=== PATIENT | male | born 1945 | race Caucasian/White ===

== ENCOUNTER 2018-04-01 20:20 | Inpatient (IN) | payer MEDICARE, BC ==
--- NOTE | 2018-04-01 20:47 | ED ---
Weakness HPI - General Chief complaint: Weakness Stated complaint: Weakenss Time Seen by Provider: 04/01/18 20:31 Source: patient, family, RN notes reviewed Mode of arrival: ambulatory Limitations: no limitations - History of Present Illness Initial comments: This is a 72-year-old male was brought in by his with complaints of generalized weakness. Feel generally weak over last 2 or 3 days getting progressively worse he has a slight cough has had some chills no fevers until he was going to . His . He does have Parkinson's disease with a neurostimulator. No reports of dysuria hematuria he's had somewhat decreased oral intake also. No focal weakness no headaches rhinorrhea. No other modifying factors currently MD Complaint: generalized weakness - Related Data Home Medications Medication Instructions Recorded Confirmed Acetaminophen with Codeine 1 - 2 tab PO QID PRN 04/01/18 04/01/18 [Tylenol w/codeine #3] Atorvastatin Calcium [Lipitor] 10 mg PO HS 04/01/18 04/01/18 Carbidopa-Levodopa ER 50-200Mg 1 tab PO TID 04/01/18 04/01/18 [Sinemet ER 50-200] Cholecalciferol (Vitamin D3) 2,000 unit PO DAILY 04/01/18 04/01/18 [Vitamin D3] Donepezil HCl [Aricept] 10 mg PO DAILY 04/01/18 04/01/18 Metoprolol Succinate [Toprol XL] 200 mg PO HS 04/01/18 04/01/18 Multivit-Min/FA/Lycopen/Lutein 1 tab PO DAILY 04/01/18 04/01/18 [Centrum Silver Men Tablet] [place]-3 Fatty Acids/Fish Oil [Fish 1 cap PO DAILY 04/01/18 04/01/18 Oil 1,000 mg Softgel] Vitamin B Complex 1 cap PO DAILY 04/01/18 04/01/18 metFORMIN HCL [Glucophage] 500 mg PO BID 04/01/18 04/01/18 Allergies Allergy/AdvReac Type Severity Reaction Status Date / Time No Known Allergies Allergy Verified 04/01/18 21:20 Review of Systems ROS Statement: Those systems with pertinent positive or pertinent negative responses have been documented in the HPI. ROS Other: All systems not noted in ROS Statement are negative. Past Medical History Past Medical History: Diabetes Mellitus, Hypertension Additional Past Medical History / Comment(s): parkinsons, deep brain stimulator, History of Any Multi-Drug Resistant Organisms: None Reported Additional Past Surgical History / Comment(s): deep brain stimulator Past Psychological History: No Psychological Hx Reported Smoking Status: Never smoker Past Alcohol Use History: None Reported Past Drug Use History: None Reported General Exam - General Exam Comments Initial Comments: This is a well-developed well-nourished awake alert but somewhat lethargic male Limitations: no limitations General appearance: alert, in no apparent distress Head exam: Present: atraumatic, normocephalic, normal inspection Eye exam: Present: normal appearance, PERRL, EOMI. Absent: scleral icterus, conjunctival injection, periorbital swelling ENT exam: Present: mucous membranes dry Neck exam: Present: normal inspection. Absent: tenderness, meningismus, lymphadenopathy Respiratory exam: Present: decreased breath sounds (Crepitus at the left base). Absent: respiratory distress, wheezes, rales, rhonchi, stridor Cardiovascular Exam: Present: regular rate, normal rhythm, normal heart sounds. Absent: systolic murmur, diastolic murmur, rubs, gallop, clicks GI/Abdominal exam: Present: soft, normal bowel sounds. Absent: distended, tenderness, guarding, rebound, rigid Extremities exam: Present: normal inspection, full ROM, normal capillary refill. Absent: tenderness, pedal edema, joint swelling, calf tenderness Back exam: Present: normal inspection Neurological exam: Present: alert, oriented X3, CN II-XII intact Psychiatric exam: Present: normal affect, normal mood Skin exam: Present: warm, dry, intact, normal color. Absent: rash Course Vital Signs 04/01/18 04/01/18 04/01/18 20:21 20:51 20:57 Temperature 98.8 F 100.5 F H Pulse Rate 86 79 Pulse Rate [ 76 Glove Brusher ] Respiratory 18 17 17 Rate Blood Pressure 144/79 160/85 O2 Sat by Pulse 95 91 L Oximetry 04/01/18 04/01/18 21:36 22:32 Temperature 99.5 F Pulse Rate 70 70 Pulse Rate [ Glove Brusher ] Respiratory 16 16 Rate Blood Pressure 138/81 144/71 O2 Sat by Pulse 95 97 Oximetry EKG Findings - EKG Results: EKG: interpreted by BARRY, sinus rhythm (Sinus rhythm of 76. Interval 148 QRS duration 84 QT since QTC 360/414 this is a normal-appearing EKG) Medical Decision Making - Medical Decision Making I did discuss the findings with the patient and his 's patient does demonstrate evidence of pneumonia he will be admitted he was given adequate IV fluid resuscitation IV antibiotics. - Lab Data Result diagrams: 04/01/18 20:44 04/01/18 20:44 Lab Results 04/01/18 04/01/18 04/01/18 Range/Units 20:44 20:44 20:44 WBC 15.7 H (3.8-10.6) k/uL RBC 4.68 (4.30-5.90) m/uL Hgb 13.5 (13.0-17.5) gm/dL Hct 41.9 (39.0-53.0) % MCV 89.5 (80.0-100.0) fL MCH 28.8 (25.0-35.0) pg MCHC 32.2 (31.0-37.0) g/dL RDW 13.3 (11.5-15.5) % Plt Count 236 (150-450) k/uL Neutrophils % 79 % Lymphocytes % 14 % Monocytes % 5 % Eosinophils % 1 % Basophils % 0 % Neutrophils # 12.3 H (1.3-7.7) k/uL Lymphocytes # 2.2 (1.0-4.8) k/uL Monocytes # 0.8 (0-1.0) k/uL Eosinophils # 0.1 (0-0.7) k/uL Basophils # 0.1 (0-0.2) k/uL PT (9.0-12.0) sec INR (<1.2) APTT (22.0-30.0) sec Sodium 140 (137-145) mmol/L Potassium 4.3 (3.5-5.1) mmol/L Chloride 102 (98-107) mmol/L Carbon Dioxide 26 (22-30) mmol/L Anion Gap 12 mmol/L BUN 21 H (9-20) mg/dL Creatinine 0.79 (0.66-1.25) mg/dL Est GFR (CKD-EPI)AfAm >90 (>60 ml/min/1.73 sqM) Est GFR (CKD-EPI)NonAf 89 (>60 ml/min/1.73 sqM) Glucose 169 H (74-99) mg/dL Plasma Lactic Acid Fermin (0.7-2.0) mmol/L Calcium 10.0 (8.4-10.2) mg/dL Magnesium 1.9 (1.6-2.3) mg/dL Total Bilirubin 0.6 (0.2-1.3) mg/dL AST 19 (17-59) U/L ALT 14 L (21-72) U/L Alkaline Phosphatase 65 (38-126) U/L Total Creatine Kinase 50 L (55-170) U/L CK-MB (CK-2) 1.3 (0.0-2.4) ng/mL CK-MB (CK-2) Rel Index 2.6 Troponin I <0.012 (0.000-0.034) ng/mL NT-Pro-B Natriuret Pep pg/mL Total Protein 7.1 (6.3-8.2) g/dL Albumin 4.6 (3.5-5.0) g/dL Urine Color Urine Appearance (Clear) Urine pH (5.0-8.0) Ur Specific Lucien (1.001-1.035) Urine Protein (Negative) Urine Glucose (UA) (Negative) Urine Ketones (Negative) Urine Blood (Negative) Urine Nitrite (Negative) Urine Bilirubin (Negative) Urine Urobilinogen (<2.0) mg/dL Ur Leukocyte Esterase (Negative) Urine RBC (0-5) /hpf Urine WBC (0-5) /hpf Urine Bacteria (None) /hpf Urine Mucus (None) /hpf Urine Sperm (None) /hpf Influenza Type A RNA (Not Detectd) Influenza Type B (PCR) (Not Detectd) 04/01/18 04/01/18 04/01/18 Range/Units 20:44 20:44 20:44 WBC (3.8-10.6) k/uL RBC (4.30-5.90) m/uL Hgb (13.0-17.5) gm/dL Hct (39.0-53.0) % MCV (80.0-100.0) fL MCH (25.0-35.0) pg MCHC (31.0-37.0) g/dL RDW (11.5-15.5) % Plt Count (150-450) k/uL Neutrophils % % Lymphocytes % % Monocytes % % Eosinophils % % Basophils % % Neutrophils # (1.3-7.7) k/uL Lymphocytes # (1.0-4.8) k/uL Monocytes # (0-1.0) k/uL Eosinophils # (0-0.7) k/uL Basophils # (0-0.2) k/uL PT 9.9 (9.0-12.0) sec INR 1.0 (<1.2) APTT 29.0 (22.0-30.0) sec Sodium (137-145) mmol/L Potassium (3.5-5.1) mmol/L Chloride (98-107) mmol/L Carbon Dioxide (22-30) mmol/L Anion Gap mmol/L BUN (9-20) mg/dL Creatinine (0.66-1.25) mg/dL Est GFR (CKD-EPI)AfAm (>60 ml/min/1.73 sqM) Est GFR (CKD-EPI)NonAf (>60 ml/min/1.73 sqM) Glucose (74-99) mg/dL Plasma Lactic Acid Fermin 2.2 H* (0.7-2.0) mmol/L Calcium (8.4-10.2) mg/dL Magnesium (1.6-2.3) mg/dL Total Bilirubin (0.2-1.3) mg/dL AST (17-59) U/L ALT (21-72) U/L Alkaline Phosphatase (38-126) U/L Total Creatine Kinase (55-170) U/L CK-MB (CK-2) (0.0-2.4) ng/mL CK-MB (CK-2) Rel Index Troponin I (0.000-0.034) ng/mL NT-Pro-B Natriuret Pep 51 pg/mL Total Protein (6.3-8.2) g/dL Albumin (3.5-5.0) g/dL Urine Color Urine Appearance (Clear) Urine pH (5.0-8.0) Ur Specific Lucien (1.001-1.035) Urine Protein (Negative) Urine Glucose (UA) (Negative) Urine Ketones (Negative) Urine Blood (Negative) Urine Nitrite (Negative) Urine Bilirubin (Negative) Urine Urobilinogen (<2.0) mg/dL Ur Leukocyte Esterase (Negative) Urine RBC (0-5) /hpf Urine WBC (0-5) /hpf Urine Bacteria (None) /hpf Urine Mucus (None) /hpf Urine Sperm (None) /hpf Influenza Type A RNA (Not Detectd) Influenza Type B (PCR) (Not Detectd) 04/01/18 04/01/18 Range/Units 20:59 22:45 WBC (3.8-10.6) k/uL RBC (4.30-5.90) m/uL Hgb (13.0-17.5) gm/dL Hct (39.0-53.0) % MCV (80.0-100.0) fL MCH (25.0-35.0) pg MCHC (31.0-37.0) g/dL RDW (11.5-15.5) % Plt Count (150-450) k/uL Neutrophils % % Lymphocytes % % Monocytes % % Eosinophils % % Basophils % % Neutrophils # (1.3-7.7) k/uL Lymphocytes # (1.0-4.8) k/uL Monocytes # (0-1.0) k/uL Eosinophils # (0-0.7) k/uL Basophils # (0-0.2) k/uL PT (9.0-12.0) sec INR (<1.2) APTT (22.0-30.0) sec Sodium (137-145) mmol/L Potassium (3.5-5.1) mmol/L Chloride (98-107) mmol/L Carbon Dioxide (22-30) mmol/L Anion Gap mmol/L BUN (9-20) mg/dL Creatinine (0.66-1.25) mg/dL Est GFR (CKD-EPI)AfAm (>60 ml/min/1.73 sqM) Est GFR (CKD-EPI)NonAf (>60 ml/min/1.73 sqM) Glucose (74-99) mg/dL Plasma Lactic Acid Fermin (0.7-2.0) mmol/L Calcium (8.4-10.2) mg/dL Magnesium (1.6-2.3) mg/dL Total Bilirubin (0.2-1.3) mg/dL AST (17-59) U/L ALT (21-72) U/L Alkaline Phosphatase (38-126) U/L Total Creatine Kinase (55-170) U/L CK-MB (CK-2) (0.0-2.4) ng/mL CK-MB (CK-2) Rel Index Troponin I (0.000-0.034) ng/mL NT-Pro-B Natriuret Pep pg/mL Total Protein (6.3-8.2) g/dL Albumin (3.5-5.0) g/dL Urine Color Yellow Urine Appearance Cloudy (Clear) Urine pH 7.0 (5.0-8.0) Ur Specific Lucien 1.019 (1.001-1.035) Urine Protein 1+ H (Negative) Urine Glucose (UA) Negative (Negative) Urine Ketones Negative (Negative) Urine Blood Negative (Negative) Urine Nitrite Negative (Negative) Urine Bilirubin Negative (Negative) Urine Urobilinogen <2.0 (<2.0) mg/dL Ur Leukocyte Esterase Negative (Negative) Urine RBC 13 H (0-5) /hpf Urine WBC 10 H (0-5) /hpf Urine Bacteria Many H (None) /hpf Urine Mucus Rare H (None) /hpf Urine Sperm Many H (None) /hpf Influenza Type A RNA Not Detected (Not Detectd) Influenza Type B (PCR) Not Detected (Not Detectd) - Radiology Data Radiology results: report reviewed (I did review the imaging and report is evidence a left basilar infiltrate.), image reviewed Disposition Clinical Impression: Pneumonia, Dehydration, Failure to thrive Disposition: ADMITTED IP TO THIS [facility] Condition: Stable Referrals: Davide Buchanan MD [Primary Care Provider] - 1-2 days
[2018-04-01] MEDS ORDERED: SODIUM CHLORIDE 0.9% 500 ML IV STA (21:03)
[2018-04-01 21:18] LABS: Basophils # (A) 0.1 k/uL (0-0.2); Basophils % (A) 0 %; Eosinophils # (A) 0.1 k/uL (0-0.7); Eosinophils % (A) 1 %; HCT 41.9 % (39.0-53.0); HGB 13.5 gm/dL (13.0-17.5); Lymphocytes # (A) 2.2 k/uL (1.0-4.8); Lymphocytes % (A) 14 %; MCH 28.8 pg (25.0-35.0); MCHC 32.2 g/dL (31.0-37.0); MCV 89.5 fL (80.0-100.0); Mean Platelet Volume 7.1; Monocytes # (A) 0.8 k/uL (0-1.0); Monocytes % (A) 5 %; Neutrophils # (A) 12.3 k/uL (1.3-7.7); Neutrophils % (A) 79 %; Platelet Count 236 k/uL (150-450); RBC 4.68 m/uL (4.30-5.90); RDW 13.3 % (11.5-15.5); WBC 15.7 k/uL (3.8-10.6)
[2018-04-01 21:29] LABS: ALT 14 U/L (21-72); AST 19 U/L (17-59); Albumin 4.6 g/dL (3.5-5.0); Alkaline Phosphatase 65 U/L (38-126); Anion Gap 12 mmol/L; Blood Urea Nitrogen 21 mg/dL (9-20); Carbon Dioxide 26 mmol/L (22-30); Chloride 102 mmol/L (98-107); Glucose 169 mg/dL (74-99); Magnesium 1.9 mg/dL (1.6-2.3); Potassium 4.3 mmol/L (3.5-5.1); Sodium 140 mmol/L (137-145); Total Bilirubin 0.6 mg/dL (0.2-1.3); Total Protein 7.1 g/dL (6.3-8.2)
[2018-04-01 21:33] LABS: Creatine Kinase 50 U/L (55-170)
[2018-04-01] MEDS: SODIUM CHLORIDE 0.9% 1,000 ML IV STA (21:34)
[2018-04-01 21:37] LABS: Prothrombin Time 9.9 sec (9.0-12.0)
[2018-04-01 21:46] LABS: Creatine Kinase MB 1.3 ng/mL (0.0-2.4); Troponin I <0.012 ng/mL (0.000-0.034)
--- NOTE | 2018-04-01 21:56 | XR ---
EXAMINATION TYPE: XR chest 2V DATE OF EXAM: 04/01/2018 COMPARISON: 07/24/2012 HISTORY: Weakness TECHNIQUE: Frontal and lateral views of the chest are obtained. FINDINGS: There is poor inspiration with elevated diaphragms. There is linear infiltrate and atelect asis at the left lung base. There is no gross heart failure. There are bilateral neural stimulators o nahomi the axilla. There are chest leads. IMPRESSION: Left basilar infiltrate and atelectasis. No heart failure. This is essentially new hussein red to old exam.
[2018-04-01 23:08] LABS: Appearance,Urine Cloudy (Clear); Bacteria,Urine Many /hpf; Bilirubin,Urine Negative (Negative); Blood,Urine Negative (Negative); Color,Urine Yellow; Glucose,Urine (UA) Negative (Negative); Ketones,Urine Negative (Negative); Leukocyte Esterase,Urine Negative (Negative); Mucus,Urine Rare /hpf; Nitrite,Urine Negative (Negative); Protein,Urine 1+ (Negative); RBC,Urine 13 /hpf (0-5); Specific Gravity,Urine 1.019 (1.001-1.035); Sperm,Urine Many /hpf; Urobilinogen,Urine <2.0 mg/dL (<2.0); WBC,Urine 10 /hpf (0-5)
[2018-04-02] MEDS ORDERED: PNEUMONIA PROTOCOL UTILIZED 1 EACH MISC PO PRN (00:06)
[2018-04-02] MEDS ORDERED: AZITHROMYCIN 500 MG in SODIUM CHLORIDE 0.9% 250 ML IVPB STA (00:06)
[2018-04-02] MEDS ORDERED: ACET/COD 300 MG/30 MG STARTER PACK 6 TAB BTL PO PRN (00:08)
[2018-04-02 03:06] VITALS: BMI 24.9
[2018-04-02] MEDS: SODIUM CHLORIDE 0.9% 1,000 ML IV STA (03:09)
[2018-04-02] MEDS: SODIUM CHLORIDE 0.9% 1,000 ML IV SCH ×4 (03:10→21:35)
[2018-04-02 06:56] LABS: Glucose,Whole Blood 109 mg/dL (75-99)
[2018-04-02] MEDS: INSULIN ASPART 100 UNIT/ML 1 ML 10 ML VIAL SQ SCH ×4 (07:09→21:20)
[2018-04-02] MEDS: CARBIDOPA-LEVODOPA ER 50-200MG 1 EACH TABLET.ER PO SCH ×3 (07:56→21:19)
[2018-04-02] MEDS: DONEPEZIL 10 MG TAB PO SCH (07:56)
[2018-04-02] MEDS: metFORMIN 500 MG TAB PO SCH ×2 (07:56→21:19)
[2018-04-02] MEDS: CHOLECALCIFEROL 1,000 UNIT TAB PO SCH (07:56)
[2018-04-02] MEDS ORDERED: NON-FORMULARY DRUG (Omega-3 Fatty Acids/Fish Oil [Fish Oil 1,000 Mg Softgel] 1 CAP) PO SCH (09:00)
[2018-04-02] MEDS ORDERED: NON-FORMULARY DRUG (Vitamin B Complex [Vitamin B Complex] 1 CAP) PO SCH (09:00)
[2018-04-02] MEDS ORDERED: NON-FORMULARY DRUG (Multivit-Min/Fa/Lycopen/Lutein [Centrum Silver Men Tablet] 1 TAB) PO SCH (09:00)
--- NOTE | 2018-04-02 10:30 | P.HPIM ---
History of Present Illness 72-year-old male presented the emergency room with with report that he has generalized weakness occasional cough on evaluation found to have pneumonia was admitted for treatment patient has a history of diabetes type 2. Has Parkinson' s with neurostimulator also history of hypertension Review of Systems ROS unobtainable: due to mental status Past Medical History Past Medical History: Diabetes Mellitus, Hypertension Additional Past Medical History / Comment(s): Parkinsons, deep brain stimulator , Type 2 diabetes History of Any Multi-Drug Resistant Organisms: None Reported Additional Past Surgical History / Comment(s): Deep brain stimulator:2006 and battery replacement in stimulator Past Anesthesia/Blood Transfusion Reactions: No Reported Reaction Past Psychological History: No Psychological Hx Reported Smoking Status: Never smoker Past Alcohol Use History: None Reported Past Drug Use History: None Reported - Past Family History Brother(s) Family Medical History: Diabetes Mellitus Additional Family Medical History / Comment(s): Parkinsons Father Additional Family Medical History / Comment(s): Past away from a stroke Medications and Allergies Home Medications Medication Instructions Recorded Confirmed Type Acetaminophen with Codeine 1 - 2 tab PO QID PRN 04/01/18 04/01/18 History [Tylenol w/codeine #3] Atorvastatin Calcium [Lipitor] 10 mg PO HS 04/01/18 04/01/18 History Carbidopa-Levodopa ER 50-200Mg 1 tab PO TID 04/01/18 04/01/18 History [Sinemet ER 50-200] Cholecalciferol (Vitamin D3) 2,000 unit PO DAILY 04/01/18 04/01/18 History [Vitamin D3] Donepezil HCl [Aricept] 10 mg PO DAILY 04/01/18 04/01/18 History Metoprolol Succinate [Toprol XL] 200 mg PO HS 04/01/18 04/01/18 History Multivit-Min/FA/Lycopen/Lutein 1 tab PO DAILY 04/01/18 04/01/18 History [Centrum Silver Men Tablet] [place]-3 Fatty Acids/Fish Oil [Fish 1 cap PO DAILY 04/01/18 04/01/18 History Oil 1,000 mg Softgel] Vitamin B Complex 1 cap PO DAILY 04/01/18 04/01/18 History metFORMIN HCL [Glucophage] 500 mg PO BID 04/01/18 04/01/18 History Allergies Allergy/AdvReac Type Severity Reaction Status Date / Time No Known Allergies Allergy Verified 04/01/18 21:20 Physical Exam Vitals: Vital Signs Temp Pulse Pulse Pulse Resp BP BP 04/02/18 05:00 97.5 F L 69 16 151/90 04/02/18 02:22 98.2 F 71 16 160/80 04/02/18 01:28 98.7 F 69 17 153/75 04/02/18 00:06 04/01/18 22:32 70 16 144/71 04/01/18 21:36 99.5 F 70 16 138/81 04/01/18 20:57 100.5 F H 79 17 160/85 04/01/18 20:51 76 17 04/01/18 20:21 98.8 F 86 18 144/79 Pulse Ox 04/02/18 05:00 98 04/02/18 02:22 95 04/02/18 01:28 96 04/02/18 00:06 96 04/01/18 22:32 97 04/01/18 21:36 95 04/01/18 20:57 91 L 04/01/18 20:51 04/01/18 20:21 95 Intake and Output 04/01/18 04/02/18 04/02/18 22:59 06:59 14:59 Intake Total 1390 Output Total 700 Balance 690 Intake: Amount of Fluid Infused ( 500 ml) Intake, IV Titration 650 Amount Azithromycin 500 mg In 250 Sodium Chloride 0.9% 250 ml @ 250 mls/hr IVPB ONCE STA Rx#:[id number] Sodium Chloride 0.9% 1, 400 000 ml @ 100 mls/hr IV . Q10H [facility] Rx#:[id number] Oral 240 Output: Urine 700 Other: Voiding Method Urinal # Voids 2 # Bowel Movements 2 Weight 69.4 kg 68 kg - Constitutional General appearance: mild distress - EENT Eyes: PERRLA Ears: bilateral: normal - Neck Neck: normal ROM - Respiratory Respiratory: bilateral: CTA - Cardiovascular Rhythm: regular - Gastrointestinal General gastrointestinal: soft - Integumentary Integumentary: normal - Neurologic Neurologic: CNII-XII intact - Musculoskeletal Musculoskeletal: generalized weakness - Psychiatric Patient has mumbling speech. Was able to state that he was in [facility] in the president was Results CBC & Chem 7: 04/01/18 20:44 09/26/18 20:44 Labs: Abnormal Lab Results - Last 24 Hours (Table) 04/01/18 04/01/18 04/01/18 Range/Units 20:44 20:44 20:44 WBC 15.7 H (3.8-10.6) k/uL Neutrophils # 12.3 H (1.3-7.7) k/uL BUN 21 H (9-20) mg/dL Glucose 169 H (74-99) mg/dL POC Glucose (mg/dL) (75-99) mg/dL Plasma Lactic Acid Fermin (0.7-2.0) mmol/L ALT 14 L (21-72) U/L Total Creatine Kinase 50 L (55-170) U/L Urine Protein (Negative) Urine RBC (0-5) /hpf Urine WBC (0-5) /hpf Urine Bacteria (None) /hpf Urine Mucus (None) /hpf Urine Sperm (None) /hpf 04/01/18 04/01/18 04/02/18 Range/Units 20:44 22:45 06:54 WBC (3.8-10.6) k/uL Neutrophils # (1.3-7.7) k/uL BUN (9-20) mg/dL Glucose (74-99) mg/dL POC Glucose (mg/dL) 109 H (75-99) mg/dL Plasma Lactic Acid Fermin 2.2 H* (0.7-2.0) mmol/L ALT (21-72) U/L Total Creatine Kinase (55-170) U/L Urine Protein 1+ H (Negative) Urine RBC 13 H (0-5) /hpf Urine WBC 10 H (0-5) /hpf Urine Bacteria Many H (None) /hpf Urine Mucus Rare H (None) /hpf Urine Sperm Many H (None) /hpf Chest x-ray: report reviewed Thrombosis Risk Factor Assmnt - Choose All That Apply Each Risk Factor Represents 2 Points: Age 61-74 years Other congenital or acquired thrombophilia - If yes, enter type in comment: No Thrombosis Risk Factor Assessment Total Risk Factor Score: 2 Thrombosis Risk Factor Assessment Level: Low Risk Assessment and Plan Plan: Assessment Pneumonia Dehydration Urinary tract infection History of diabetes type 2 Hypertension Parkinson's with neurostimulator Plan Patient on Zithromax and Rocephin and urine culture. Septic workup
[2018-04-02 11:55] LABS: Glucose,Whole Blood 94 mg/dL (75-99)
[2018-04-02 17:22] LABS: Glucose,Whole Blood 110 mg/dL (75-99)
[2018-04-02 19:53] LABS: Glucose,Whole Blood 159 mg/dL (75-99)
[2018-04-02 19:59] LABS: Hemoglobin A1C 7.3 % (4.0-6.0)
[2018-04-02] MEDS: ATORVASTATIN 10 MG TAB PO SCH (21:19)
[2018-04-02] MEDS: METOPROLOL SUCCINATE (ER) 100 MG TAB.ER.24H PO SCH (21:19)
[2018-04-03] MEDS: AZITHROMYCIN 500 MG TAB PO SCH ×2 (00:24→22:24)
[2018-04-03] MEDS: Acetaminophen-Codeine 300-30mg TAB PO PRN ×4 (01:28→22:24)
[2018-04-03] MEDS: SODIUM CHLORIDE 0.9% 1,000 ML IV SCH ×3 (05:50→20:51)
[2018-04-03 07:12] LABS: Basophils # (A) 0.1 k/uL (0-0.2); Basophils % (A) 1 %; Eosinophils # (A) 0.2 k/uL (0-0.7); Eosinophils % (A) 2 %; HCT 37.2 % (39.0-53.0); HGB 12.1 gm/dL (13.0-17.5); Lymphocytes # (A) 2.7 k/uL (1.0-4.8); Lymphocytes % (A) 27 %; MCH 28.9 pg (25.0-35.0); MCHC 32.6 g/dL (31.0-37.0); MCV 88.9 fL (80.0-100.0); Mean Platelet Volume 7.4; Monocytes # (A) 0.4 k/uL (0-1.0); Monocytes % (A) 4 %; Neutrophils # (A) 6.6 k/uL (1.3-7.7); Neutrophils % (A) 65 %; Platelet Count 209 k/uL (150-450); RBC 4.18 m/uL (4.30-5.90); RDW 13.3 % (11.5-15.5); WBC 10.1 k/uL (3.8-10.6)
[2018-04-03 07:15] LABS: Glucose,Whole Blood 90 mg/dL (75-99)
[2018-04-03] MEDS: INSULIN ASPART 100 UNIT/ML 1 ML 10 ML VIAL SQ SCH ×4 (07:20→20:36)
--- NOTE | 2018-04-03 09:19 | XR ---
EXAMINATION TYPE: XR chest 2V DATE OF EXAM: 04/03/2018 COMPARISON: 04/01/2018 INDICATION: Pneumonia TECHNIQUE: Frontal and lateral views of the chest are obtained. FINDINGS: The heart size is normal. The pulmonary vasculature is normal. The lungs are clear. Previous left lower lobe infiltrate is resolved. Minimal density may remain at t he left costophrenic angle. Follow-up exam performed to document complete clearing. Electronic device s overlie the chest with leads extending into the neck. IMPRESSION: 1. Some minimal residual remains at the left costophrenic angle. Left lower lobe infiltrate is otherw ise resolved. Follow-up exam to document complete clearing can be performed
[2018-04-03] MEDS: DONEPEZIL 10 MG TAB PO SCH (10:16)
[2018-04-03] MEDS: CHOLECALCIFEROL 1,000 UNIT TAB PO SCH (10:16)
[2018-04-03] MEDS: metFORMIN 500 MG TAB PO SCH ×2 (10:16→20:23)
[2018-04-03] MEDS: CARBIDOPA-LEVODOPA ER 50-200MG 1 EACH TABLET.ER PO SCH ×3 (10:17→21:45)
[2018-04-03 11:11] LABS: Glucose,Whole Blood 199 mg/dL (75-99)
--- NOTE | 2018-04-03 16:24 | PN ---
PROGRESS NOTE DATE OF SERVICE: 04/03/2018 I am covering for Dr. Davide Buchanan. This 72-year-old gentleman admitted with features of left lower pneumonia and dehydration is being closely monitored at this time. The blood sugars are slightly elevated. White count is 15.7 and lactic acid 2.2, currently is 1.8. UA shows some UTI too. C difficile was negative. Influenza was also negative. The most recent chest x- ray which was personally reviewed by me showed left lobe infiltrate also. PAST MEDICAL HISTORY: Reviewed. REVIEW OF SYSTEMS: Could not be taken. The patient currently confused. CURRENT MEDICATIONS: 1. Tylenol #3 q.6h p.r.n. 2. Lipitor 10 mg q.h.s. 3. Zithromax 500 mg daily. 4. Sinemet 50/200 one p.o. t.i.d. 5. Rocephin 1 g IV daily. 6. Vitamin D3 2000. 7. Aricept 10 mg p.o. 8. NovoLog q.a.c. and at bedtime. 9. Glucophage 500 mg p.o. b.i.d. 10.Toprol-XL 200 mg p.o. daily. 11.IV fluids. PHYSICAL EXAM: Patient is alert, oriented x2. Pulse 70, blood pressure 150/83, respiration 18, temperature 98.4, pulse ox 98% on room air. HEENT: Conjunctivae normal. Oral mucosa moist. Neck is no jugular venous distention. No carotid bruit. No lymph node enlargement. CARDIOVASCULAR: S1, S2. RESPIRATORY: Breath sounds diminished in the bases. A few scattered rhonchi and crackles. ABDOMEN: Soft, nontender. LEGS: No edema. NERVOUS SYSTEM: Diffusely weak. Some parkinsonian features also present. LAB STUDIES: WBC 10, hemoglobin 12.1. ASSESSMENT: 1. Acute left lower pneumonia possibly gram-negative, rule out aspiration. 2. Dehydration, present on admission. 3. Urinary tract infection. 4. Diabetes mellitus type 2. 5. Gait dysfunction. 6. Hypertension. 7. Parkinson's with neurostimulator. 8. Increased lactic acid at the time of admission. RECOMMENDATIONS AND DISCUSSION: In this 72-year-old gentleman who presented with multiple complex medical issues, we will monitor the patient closely. Continue the current management and symptomatic treatment. Will initiate broad-spectrum IV antibiotics. Otherwise I would also obtain a speech pathology consultation for dysphagia. Other than that, continue the rest of the medications. See orders. PT, OT evaluation, possible ECF rehab. Guarded prognosis. Further recommendations to follow. See orders for details. Home medication were reconciled. KATIE / RAMIN: [id number] /
[2018-04-03 17:21] LABS: Glucose,Whole Blood 129 mg/dL (75-99)
[2018-04-03 19:54] LABS: Glucose,Whole Blood 181 mg/dL (75-99)
[2018-04-03] MEDS: HEPARIN SODIUM,PORCINE 5,000 UNIT/ML 1 ML VIAL SQ SCH (20:21)
[2018-04-03] MEDS: ATORVASTATIN 10 MG TAB PO SCH (20:22)
[2018-04-03] MEDS: METOPROLOL SUCCINATE (ER) 100 MG TAB.ER.24H PO SCH (20:22)
[2018-04-04 07:23] LABS: Glucose,Whole Blood 115 mg/dL (75-99)
[2018-04-04 07:28] LABS: Basophils # (A) 0.1 k/uL (0-0.2); Basophils % (A) 0 %; Eosinophils # (A) 0.2 k/uL (0-0.7); Eosinophils % (A) 2 %; HCT 40.4 % (39.0-53.0); Lymphocytes # (A) 2.1 k/uL (1.0-4.8); Lymphocytes % (A) 19 %; MCH 28.8 pg (25.0-35.0); MCHC 32.2 g/dL (31.0-37.0); MCV 89.5 fL (80.0-100.0); Monocytes # (A) 0.5 k/uL (0-1.0); Monocytes % (A) 5 %; Neutrophils # (A) 8.1 k/uL (1.3-7.7); Neutrophils % (A) 73 %; Platelet Count 215 k/uL (150-450); RBC 4.51 m/uL (4.30-5.90); RDW 13.4 % (11.5-15.5); WBC 11.1 k/uL (3.8-10.6)
[2018-04-04] MEDS: INSULIN ASPART 100 UNIT/ML 1 ML 10 ML VIAL SQ SCH ×4 (07:36→20:07)
[2018-04-04 07:45] LABS: Anion Gap 11 mmol/L; Blood Urea Nitrogen 10 mg/dL (9-20); Calcium 9.6 mg/dL (8.4-10.2); Carbon Dioxide 23 mmol/L (22-30); Chloride 110 mmol/L (98-107); Glucose 117 mg/dL (74-99); Potassium 4.1 mmol/L (3.5-5.1); Sodium 144 mmol/L (137-145)
[2018-04-04] MEDS: metFORMIN 500 MG TAB PO SCH ×2 (08:23→20:08)
[2018-04-04] MEDS: DONEPEZIL 10 MG TAB PO SCH (08:23)
[2018-04-04] MEDS: HEPARIN SODIUM,PORCINE 5,000 UNIT/ML 1 ML VIAL SQ SCH ×2 (08:23→20:08)
[2018-04-04] MEDS: CHOLECALCIFEROL 1,000 UNIT TAB PO SCH (08:23)
[2018-04-04] MEDS: CARBIDOPA-LEVODOPA ER 50-200MG 1 EACH TABLET.ER PO SCH ×3 (08:23→21:28)
[2018-04-04 11:13] LABS: Glucose,Whole Blood 132 mg/dL (75-99)
[2018-04-04] MEDS: SODIUM CHLORIDE 0.9% 1,000 ML IV SCH (16:59)
[2018-04-04 17:11] LABS: Glucose,Whole Blood 107 mg/dL (75-99)
[2018-04-04] MEDS: Acetaminophen-Codeine 300-30mg TAB PO PRN (19:10)
[2018-04-04 20:06] LABS: Glucose,Whole Blood 190 mg/dL (75-99)
[2018-04-04] MEDS: METOPROLOL SUCCINATE (ER) 100 MG TAB.ER.24H PO SCH (20:08)
[2018-04-04] MEDS: ATORVASTATIN 10 MG TAB PO SCH (20:08)
--- NOTE | 2018-04-04 20:22 | PN ---
PROGRESS NOTE DATE OF SERVICE: 04/04/2018. I am covering for Dr. Buchanan. INTERVAL HISTORY: This 72-year-old gentleman who was admitted with acute left lower pneumonia is being closely monitored. Patient has dehydration also. No chest pain. No palpitations. No fever. The most recent chest x-ray which was reviewed by me showed some minimal residual opacity in the left costophrenic angle. No chest pain. No palpitations. No fever. PHYSICAL EXAM: Alert and oriented x2. Pulse 72, blood pressure 114/84, respirations 20, temperature 98.9, pulse ox 97% on room air. HEENT: Conjunctivae normal. Oral mucosa moist. NECK: No jugular venous distention. No lymph node enlargement. CARDIOVASCULAR: S1 and S2 muffled. LUNGS: Breath sounds diminished at the bases. Few scattered rhonchi and crackles. ABDOMEN: Soft, nontender. EXTREMITIES: Legs no edema. No swelling. CENTRAL NERVOUS SYSTEM: No focal deficits. LAB STUDIES: WBC 11.1, sodium 142, potassium 4.1, glucose 130 and 107. ASSESSMENT: 1. Acute left lower lobe pneumonia, possibly gram-negative. Rule out aspiration. 2. Dehydration, present on admission, improved. 3. Urinary tract infection. 4. Diabetes mellitus type 2. 5. Gait dysfunction. 6. Hypertension. 7. Parkinson's with neurostimulator. 8. Increased lactic acid at the time of admission. RECOMMENDATIONS: Continue current management and symptomatic treatment. is keen on taking him home at this time and also requesting a swallow evaluation testing done as outpatient. We will continue to monitor. Further recommendations to follow. MMODL / IJN: [id number] /
[2018-04-04] MEDS: AZITHROMYCIN 500 MG TAB PO SCH (23:09)
[2018-04-05] MEDS: Acetaminophen-Codeine 300-30mg TAB PO PRN (02:32)
[2018-04-05 07:16] LABS: Basophils # (A) 0.1 k/uL (0-0.2); Basophils % (A) 1 %; Eosinophils # (A) 0.3 k/uL (0-0.7); Eosinophils % (A) 2 %; HCT 38.5 % (39.0-53.0); HGB 12.4 gm/dL (13.0-17.5); Lymphocytes # (A) 2.7 k/uL (1.0-4.8); Lymphocytes % (A) 21 %; MCH 28.6 pg (25.0-35.0); MCHC 32.1 g/dL (31.0-37.0); MCV 89.2 fL (80.0-100.0); Monocytes # (A) 0.6 k/uL (0-1.0); Monocytes % (A) 5 %; Neutrophils # (A) 8.7 k/uL (1.3-7.7); Neutrophils % (A) 70 %; Platelet Count 239 k/uL (150-450); RBC 4.32 m/uL (4.30-5.90); RDW 13.2 % (11.5-15.5); WBC 12.4 k/uL (3.8-10.6)
[2018-04-05 07:26] LABS: Glucose,Whole Blood 143 mg/dL (75-99)
[2018-04-05 07:33] VITALS: BP 164/82; PULSE 67; RESP 20; TEMP 97.6
[2018-04-05 07:33] LABS: Anion Gap 13 mmol/L; Blood Urea Nitrogen 12 mg/dL (9-20); Calcium 8.9 mg/dL (8.4-10.2); Carbon Dioxide 23 mmol/L (22-30); Chloride 108 mmol/L (98-107); Glucose 159 mg/dL (74-99); Potassium 3.9 mmol/L (3.5-5.1); Sodium 144 mmol/L (137-145)
[2018-04-05] MEDS: CARBIDOPA-LEVODOPA ER 50-200MG 1 EACH TABLET.ER PO SCH (08:33)
[2018-04-05] MEDS: DONEPEZIL 10 MG TAB PO SCH (08:33)
[2018-04-05] MEDS: metFORMIN 500 MG TAB PO SCH (08:33)
[2018-04-05] MEDS: HEPARIN SODIUM,PORCINE 5,000 UNIT/ML 1 ML VIAL SQ SCH (08:33)
[2018-04-05] MEDS: CHOLECALCIFEROL 1,000 UNIT TAB PO SCH (08:33)
[2018-04-05] MEDS: INSULIN ASPART 100 UNIT/ML 1 ML 10 ML VIAL SQ SCH ×2 (08:33→12:29)
[2018-04-05 10:56] LABS: Glucose,Whole Blood 141 mg/dL (75-99)
--- NOTE | 2018-04-05 15:29 | DS ---
DISCHARGE SUMMARY DATE OF SERVICE: 04/05/2018 FINAL DIAGNOSES: 1. Acute left lower pneumonia possibly community-acquired possibly gram-negative, rule out aspiration. 2. Dehydration present on admission, improved. 3. Urinary tract infection. 4. Diabetes mellitus type 2. 5. Gait dysfunction. 6. Hypertension. 7. Parkinson's with neurostimulator. 8. Increased lactic acid at the time of admission. DISCHARGE DISPOSITION: The patient will be discharged with stable condition with guarded prognosis. Total time taken 35 minutes. HISTORY OF PRESENT ILLNESS: This 72-year-old gentleman with a past medical history of multiple medical problems, being followed by Dr. Davide Buchanan in the outpatient setting was admitted with acute left lower pneumonia possibly community-acquired possibly gram-negative. Patient treated with antibiotics, improved significantly. Sensorium also improved. Lactic acid was elevated, improved. Speech pathology and evaluation and as well as modified barium swallow was suggested. The patient would like to come back as an outpatient for that evaluation. Overall, patient made significant improvement. The patient is keen on going home. Patient is able to swallow grossly. Patient will be discharged in stable condition with guarded prognosis with the following advice. On exam, vital signs are stable. CARDIOVASCULAR: S1, S2 normal. ABDOMEN: Soft, nontender. NERVOUS SYSTEM: Parkinson's present. DISCHARGE ADVICE: 1. Diet is cardiac. 2. Activity limited until followup. 3. Aspiration precautions. 4. Follow with Dr. Davide Buchanan 1-2 days. 5. Outpatient to modified barium swallow and evaluation. MEDICATIONS: 1. Codeine Tylenol 1-2 q.6h p.r.n. 2. Lipitor 10 mg q.h.s. 3. Carbidopa/levodopa 50/200 one p.o. t.i.d. 4. Vitamin D3 2000 daily. 5. Aricept 10 mg p.o. daily. 6. Glucophage 500 mg p.o. b.i.d. 7. Toprol-XL 200 mg p.o. q.h.s. 8. Multivitamins 1 p.o. daily. 9. [place]-3 fatty acids 1 p.o. daily. 10.Vitamin B complex 1 p.o. daily. 11.Albuterol 2 puffs q.i.d. and p.r.n. 12.Augmentin 875 mg 1 p.o. b.i.d. for 4 days. The patient will be discharged in stable condition with guarded prognosis. MMODL / IJN: [id number] /
--- NOTE | 2018-04-07 04:19 | CDI ---
Last Revision, June 2017 Documentation Clarification Form Date: 04/06/2018 9:34:00 AM From: Sheri Mejía Phone: If you have a question about this query, please contact Litzy Shrestha Stone Setter at [phone] between 8am and 5pm. Admit Date: 04/02/2018 12:06:00 AM Patient Name: Santana Rogers Visit Number: [id number] Discharge Date: 04/04/18 ATTENTION: The Clinical Documentation Specialists (CDI) and [facility] Coding Staff appreciate your assistance in clarifying documentation. Please respond to the clarification below the line at the bottom and electronically sign. The CDI & [facility] Coding staff will review the response and follow-up if needed. Please note: Queries are made part of the Legal Health Record. If you have any questions, please contact the author of this message via ITS. Ralph Childers MD Pneumonia was documented as possible gram negative, communitu acquired, rule out aspiration. History/Risk Factors: Patient has Parkinson's Clinical Indicators: WBC/Left shift: 15.7 X-ray: Poor inspiration infiltrate and atelectasis Antibiotics Rocephin and Zosyn Swallow evaluation to be done outpatient In order to capture the severity of condition, please clarify if the condition signifies and you are treating for: Aspiration Pneumonia, identify if: Due to solids or liquids Due to anesthesia during L/D Due to anesthesia during puerperium Bacterial Pneumonia, specify causal organism (if known) Gram Negative Pneumonia Other, please specify Unable to determine ____ Unable to determine MTDD
== END 2018-04-05 13:15 | disposition home or self-care (01) | DRG 178 ==
LOC: EC 20:20 → 5MS5E 04-02 00:06
PROVIDERS: ADMIT Family Medicine; ATTEND Family Medicine
DX: J15.6 Pneumonia due to other Gram-negative bacteria (principal); N39.0 Urinary tract infection, site not specified; E87.2 Acidosis; E11.9 Type 2 diabetes mellitus without complications; E86.0 Dehydration; G20 Parkinson's disease; I10 Essential (primary) hypertension; R62.7 Adult failure to thrive; Z82.0 Family history of epilepsy and other diseases of the nervous system; Z82.3 Family history of stroke; Z83.3 Family history of diabetes mellitus; R26.9 Unspecified abnormalities of gait and mobility; Z79.84 Long term (current) use of oral hypoglycemic drugs; Z79.899 Other long term (current) drug therapy
CPT/HCPCS: 36415; 71046; 80048; 80053; 81001; 82272; 82550; 82553; 83036; 83605; 83735; 83880; 84484; 85025; 85610; 85730; 87040; 87086; 87324; 87502; 93005; 96360; 96365; 99285

== ENCOUNTER → 2018-04-10 | Outpatient (CLI) | payer MEDICARE, BC ==
--- NOTE | 2018-04-10 12:48 | FL ---
EXAMINATION TYPE: FL barium swallow w video DATE OF EXAM: 04/10/2018 MODIFIED SWALLOW / DEGLUTITION STUDY CLINICAL HISTORY: Dysphagia. Parkinsonian syndrome. TECHNIQUE: Deglutition study is performed utilizing thin liquid barium, honey and nectar thick liqui d barium, barium thick applesauce, and barium coated cracker. 2min 16 sec fl time. 0 images saved, vi olga lidia recorded. COMPARISON: None. FINDINGS: The oral and pharyngeal phases show satisfactory initiation and propagation with all modali ties tested. There is sluggish down folding and closure of the epiglottis with all modalities tested. Normal mastication is seen with solid modalities tested. Intermittent but repeated deep laryngeal penetration is seen with the liquid barium and honey thick l iquid barium resolved with bullous volume modification and chin tuck maneuver. There is no evidence o f laryngeal aspiration with any modality tested. No significant pharyngeal residue was appreciated a lthough small volume vallecular retention is noted. IMPRESSION: 1. Intermittent deep laryngeal penetration resolved with bullous volume modification and chin tuck ma neuver. No laryngeal aspiration. 2. Small volume vallecular retention and sluggish closure the epiglottis. 3. Please refer to speech therapist notes for further details if necessary.
== END | disposition home or self-care (01) ==
LOC: RADFLMAIN 11:35
PROVIDERS: ATTEND Hospitalist
DX: J38.7 Other diseases of larynx (principal); G20 Parkinson's disease
CPT/HCPCS: 74230

== ENCOUNTER 2018-05-12 11:56 | Emergency (ER) | payer MEDICARE, BC ==
[2018-05-12 12:11] VITALS: TEMP 97.8
[2018-05-12] MEDS ORDERED: SODIUM CHLORIDE 0.9% 500 ML 500 ML IV ONE (12:24)
--- NOTE | 2018-05-12 12:55 | ED ---
General Adult HPI - General Chief complaint: Altered Mental Status Stated complaint: Dementia Time Seen by Provider: 05/12/18 12:12 Source: patient, family, RN notes reviewed, old records reviewed Mode of arrival: ambulatory Limitations: altered mental status - History of Present Illness Initial comments: 72-year-old male history of Parkinson's disease presents for evaluation of altered mental status for the past 2 days. Patient's has noted confusion. Patient has history of the brain stimulator for his Parkinson's. No history of fever or chills. No history of cough or dyspnea. No chest pain. No abdominal pain. No nausea or vomiting. Patient's does note increased thirst and urination as well as urinary incontinence which is new for the patient over the past one month. - Related Data Home Medications Medication Instructions Recorded Confirmed Acetaminophen with Codeine 1 - 2 tab PO QID PRN 04/01/18 05/12/18 [Tylenol w/codeine #3] Atorvastatin Calcium [Lipitor] 10 mg PO HS 04/01/18 05/12/18 Carbidopa-Levodopa ER 50-200Mg 1 tab PO QID 04/01/18 05/12/18 [Sinemet CR 50-200 mg] Cholecalciferol (Vitamin D3) 2,000 unit PO DAILY 04/01/18 05/12/18 [Vitamin D3] Donepezil HCl [Aricept] 10 mg PO DAILY 04/01/18 05/12/18 Metoprolol Succinate [Toprol XL] 200 mg PO HS 04/01/18 05/12/18 metFORMIN HCL [Glucophage] 500 mg PO BID 04/01/18 05/12/18 Allergies Allergy/AdvReac Type Severity Reaction Status Date / Time No Known Allergies Allergy Verified 05/12/18 13:51 Review of Systems ROS Statement: Those systems with pertinent positive or pertinent negative responses have been documented in the HPI. ROS Other: All systems not noted in ROS Statement are negative. Past Medical History Past Medical History: Diabetes Mellitus, Hypertension Additional Past Medical History / Comment(s): Parkinsons, deep brain stimulator , Type 2 diabetes History of Any Multi-Drug Resistant Organisms: None Reported Past Surgical History: Heart Catheterization Additional Past Surgical History / Comment(s): Deep brain stimulator:2007 and battery replacement in stimulator Past Anesthesia/Blood Transfusion Reactions: No Reported Reaction Past Psychological History: No Psychological Hx Reported Smoking Status: Never smoker Past Alcohol Use History: None Reported Past Drug Use History: None Reported - Past Family History Brother(s) Family Medical History: Diabetes Mellitus Additional Family Medical History / Comment(s): Parkinsons Father Additional Family Medical History / Comment(s): Past away from a stroke General Exam Limitations: altered mental status General appearance: alert, in no apparent distress Head exam: Present: atraumatic, normocephalic Eye exam: Present: normal appearance, EOMI. Absent: PERRL (Right pupil 3 mm, left pupil 4 mm) Neck exam: Present: normal inspection. Absent: tenderness, meningismus Respiratory exam: Present: normal lung sounds bilaterally. Absent: respiratory distress, wheezes Cardiovascular Exam: Present: regular rate, normal rhythm GI/Abdominal exam: Present: soft. Absent: distended, tenderness, guarding Back exam: Present: normal inspection, full ROM Neurological exam: Present: alert, oriented X3, CN II-XII intact. Absent: motor sensory deficit Psychiatric exam: Present: normal affect, normal mood Skin exam: Present: warm, dry, intact. Absent: cyanosis, diaphoretic Course Vital Signs 05/12/18 05/12/18 05/12/18 12:05 12:40 13:20 Temperature 97.8 F Pulse Rate 72 61 55 L Respiratory 18 19 18 Rate Blood Pressure 98/62 128/81 130/76 O2 Sat by Pulse 97 97 97 Oximetry EKG Findings - EKG Comments: EKG Findings:: EKG: Sinus bradycardia, LVH, rate of 57, NJ interval 146, QRS duration 88, QTC 416, no ST segment elevation Medical Decision Making - Medical Decision Making 72-year-old male with confusion. History of advanced Parkinson's. Workup in the emergency department reveals normal CBC, normal CMP, urinalysis negative for infection. Chest x-ray negative for focal pneumonia. Head CT negative for intracranial hemorrhage or mass effect, does show deep brain stimulator. Patient's workup is negative, vital signs stable, neurologic exam is nonfocal. I did discuss patient's case with Dr. Burgos at the [facility] who is very familiar with this patient. He is okay with outpatient follow-up at this time. Likely symptoms related to Parkinson's. Appointment is made for the patient tomorrow at 2 PM. Patient will return with worsening or changing symptoms. - Lab Data Result diagrams: 05/12/18 12:31 05/12/18 12:31 Lab Results 05/12/18 05/12/18 05/12/18 Range/Units 12:31 12:31 12:31 WBC 11.1 H (3.8-10.6) k/uL RBC 4.72 (4.30-5.90) m/uL Hgb 13.5 (13.0-17.5) gm/dL Hct 41.1 (39.0-53.0) % MCV 87.1 (80.0-100.0) fL MCH 28.6 (25.0-35.0) pg MCHC 32.8 (31.0-37.0) g/dL RDW 13.3 (11.5-15.5) % Plt Count 237 (150-450) k/uL Neutrophils % 66 % Lymphocytes % 26 % Monocytes % 4 % Eosinophils % 1 % Basophils % 1 % Neutrophils # 7.3 (1.3-7.7) k/uL Lymphocytes # 2.9 (1.0-4.8) k/uL Monocytes # 0.5 (0-1.0) k/uL Eosinophils # 0.1 (0-0.7) k/uL Basophils # 0.1 (0-0.2) k/uL PT 10.0 (9.0-12.0) sec INR 1.0 (<1.2) APTT 27.6 (22.0-30.0) sec Sodium 143 (137-145) mmol/L Potassium 4.4 (3.5-5.1) mmol/L Chloride 107 (98-107) mmol/L Carbon Dioxide 26 (22-30) mmol/L Anion Gap 10 mmol/L BUN 11 (9-20) mg/dL Creatinine 0.78 (0.66-1.25) mg/dL Est GFR (CKD-EPI)AfAm >90 (>60 ml/min/1.73 sqM) Est GFR (CKD-EPI)NonAf 89 (>60 ml/min/1.73 sqM) Glucose 118 H (74-99) mg/dL Calcium 9.9 (8.4-10.2) mg/dL Total Bilirubin 0.7 (0.2-1.3) mg/dL AST 43 (17-59) U/L ALT 27 (21-72) U/L Alkaline Phosphatase 68 (38-126) U/L Total Protein 7.3 (6.3-8.2) g/dL Albumin 4.6 (3.5-5.0) g/dL Urine Color Urine Appearance (Clear) Urine pH (5.0-8.0) Ur Specific [place] (1.001-1.035) Urine Protein (Negative) Urine Glucose (UA) (Negative) Urine Ketones (Negative) Urine Blood (Negative) Urine Nitrite (Negative) Urine Bilirubin (Negative) Urine Urobilinogen (<2.0) mg/dL Ur Leukocyte Esterase (Negative) 05/12/18 Range/Units 12:31 WBC (3.8-10.6) k/uL RBC (4.30-5.90) m/uL Hgb (13.0-17.5) gm/dL Hct (39.0-53.0) % MCV (80.0-100.0) fL MCH (25.0-35.0) pg MCHC (31.0-37.0) g/dL RDW (11.5-15.5) % Plt Count (150-450) k/uL Neutrophils % % Lymphocytes % % Monocytes % % Eosinophils % % Basophils % % Neutrophils # (1.3-7.7) k/uL Lymphocytes # (1.0-4.8) k/uL Monocytes # (0-1.0) k/uL Eosinophils # (0-0.7) k/uL Basophils # (0-0.2) k/uL PT (9.0-12.0) sec INR (<1.2) APTT (22.0-30.0) sec Sodium (137-145) mmol/L Potassium (3.5-5.1) mmol/L Chloride (98-107) mmol/L Carbon Dioxide (22-30) mmol/L Anion Gap mmol/L BUN (9-20) mg/dL Creatinine (0.66-1.25) mg/dL Est GFR (CKD-EPI)AfAm (>60 ml/min/1.73 sqM) Est GFR (CKD-EPI)NonAf (>60 ml/min/1.73 sqM) Glucose (74-99) mg/dL Calcium (8.4-10.2) mg/dL Total Bilirubin (0.2-1.3) mg/dL AST (17-59) U/L ALT (21-72) U/L Alkaline Phosphatase (38-126) U/L Total Protein (6.3-8.2) g/dL Albumin (3.5-5.0) g/dL Urine Color Light Yellow Urine Appearance Clear (Clear) Urine pH 6.5 (5.0-8.0) Ur Specific [place] 1.004 (1.001-1.035) Urine Protein Negative (Negative) Urine Glucose (UA) Negative (Negative) Urine Ketones Negative (Negative) Urine Blood Negative (Negative) Urine Nitrite Negative (Negative) Urine Bilirubin Negative (Negative) Urine Urobilinogen <2.0 (<2.0) mg/dL Ur Leukocyte Esterase Negative (Negative) Disposition Clinical Impression: Parkinsons disease Disposition: HOME SELF-CARE Condition: Good Instructions: Parkinson Disease (ED) Additional Instructions: Please follow up with Dr. Burgos tomorrow at 2 PM. Is patient prescribed a controlled substance at d/c from ED?: No Referrals: Davide Buchanan MD [Primary Care Provider] - 1-2 days Time of Disposition: 14:28
[2018-05-12 12:59] LABS: Appearance,Urine Clear (Clear); Basophils # (A) 0.1 k/uL (0-0.2); Basophils % (A) 1 %; Bilirubin,Urine Negative (Negative); Blood,Urine Negative (Negative); Color,Urine Light Yellow; Eosinophils # (A) 0.1 k/uL (0-0.7); Eosinophils % (A) 1 %; Glucose,Urine (UA) Negative (Negative); HCT 41.1 % (39.0-53.0); HGB 13.5 gm/dL (13.0-17.5); Ketones,Urine Negative (Negative); Leukocyte Esterase,Urine Negative (Negative); Lymphocytes # (A) 2.9 k/uL (1.0-4.8); Lymphocytes % (A) 26 %; MCH 28.6 pg (25.0-35.0); MCHC 32.8 g/dL (31.0-37.0); MCV 87.1 fL (80.0-100.0); Mean Platelet Volume 6.9; Monocytes # (A) 0.5 k/uL (0-1.0); Monocytes % (A) 4 %; Neutrophils # (A) 7.3 k/uL (1.3-7.7); Neutrophils % (A) 66 %; Nitrite,Urine Negative (Negative); PH, Urine 6.5 (5.0-8.0); Platelet Count 237 k/uL (150-450); Protein,Urine Negative (Negative); RBC 4.72 m/uL (4.30-5.90); RDW 13.3 % (11.5-15.5); Specific Gravity,Urine 1.004 (1.001-1.035); Urobilinogen,Urine <2.0 mg/dL (<2.0); WBC 11.1 k/uL (3.8-10.6)
[2018-05-12 13:17] LABS: ALT 27 U/L (21-72); AST 43 U/L (17-59); Albumin 4.6 g/dL (3.5-5.0); Alkaline Phosphatase 68 U/L (38-126); Anion Gap 10 mmol/L; Blood Urea Nitrogen 11 mg/dL (9-20); Calcium 9.9 mg/dL (8.4-10.2); Carbon Dioxide 26 mmol/L (22-30); Chloride 107 mmol/L (98-107); Glucose 118 mg/dL (74-99); Potassium 4.4 mmol/L (3.5-5.1); Sodium 143 mmol/L (137-145); Total Bilirubin 0.7 mg/dL (0.2-1.3); Total Protein 7.3 g/dL (6.3-8.2)
[2018-05-12 13:18] LABS: Partial Thromboplastin Time 27.6 sec (22.0-30.0)
--- NOTE | 2018-05-12 13:23 | CT ---
EXAMINATION TYPE: CT brain wo con DATE OF EXAM: 05/12/2018 HISTORY: Altered mental status per order. Fall injury this morning with confusion and leg weakness. H istory of Parkinson's disease. CT DLP: 998.2 mGycm. Automated Exposure Control for Dose Reduction was Utilized. TECHNIQUE: CT scan of the head is performed without contrast. COMPARISON: None. FINDINGS: There is no acute intracranial hemorrhage or midline shift identified. There is diffuse v entricular and sulcal prominence consistent with diffuse age-related cerebral atrophy. There is low- attenuation in the periventricular white matter consistent with chronic small vessel ischemic change. There are bilateral frontal perez holes with stimulator devices terminating near ventral aspect of t he perimesencephalic cistern at superior aspect of the midbrain. The calvarium is intact. The globes are intact and the visualized sinuses are clear. Patchy soft tissue density in left external audito ry canal is felt to reflect cerumen IMPRESSION: No acute intracranial hemorrhage or midline shift. There is moderate diffuse age-relate d cerebral atrophy and mild chronic small vessel ischemic change as well as symmetric appearing intra cranial stimulators all noted.
--- NOTE | 2018-05-12 13:33 | XR ---
EXAMINATION TYPE: XR chest 2V DATE OF EXAM: 05/12/2018 COMPARISON: Chest x-ray April 03, 2018 HISTORY: Weakness TECHNIQUE: Frontal and lateral views of the chest are obtained. FINDINGS: There is no focal air space opacity, pleural effusion, or pneumothorax seen. The cardiac silhouette size is stable and mildly enlarged. Mild to moderate compression fracture near thoracolumb ar junction on lateral view is redemonstrated. Overlying stimulator devices are redemonstrated bilate rally. IMPRESSION: Mild cardiomegaly without acute pulmonary process.
[2018-05-12 14:34] VITALS: BP 144/87; PULSE 65; RESP 21
== END 2018-05-12 14:40 | disposition home or self-care (01) ==
LOC: EC 11:56
DX: G20 Parkinson's disease (principal); R41.0 Disorientation, unspecified; E11.9 Type 2 diabetes mellitus without complications; I10 Essential (primary) hypertension; Z79.84 Long term (current) use of oral hypoglycemic drugs; Z79.899 Other long term (current) drug therapy; Z96.89 Presence of other specified functional implants; Z95.818 Presence of other cardiac implants and grafts
CPT/HCPCS: 36415; 70450; 71046; 80053; 81003; 85025; 85610; 85730; 93005; 96360; 96361; 99285

== ENCOUNTER 2018-05-15 15:35 | Emergency (ER) | payer MEDICARE, BC ==
[2018-05-15 15:45] VITALS: TEMP 98.6
[2018-05-15 16:18] LABS: Basophils # (A) 0.1 k/uL (0-0.2); Basophils % (A) 1 %; Eosinophils # (A) 0.2 k/uL (0-0.7); Eosinophils % (A) 2 %; HCT 39.5 % (39.0-53.0); HGB 12.7 gm/dL (13.0-17.5); Lymphocytes # (A) 2.6 k/uL (1.0-4.8); Lymphocytes % (A) 25 %; MCH 28.6 pg (25.0-35.0); MCHC 32.2 g/dL (31.0-37.0); MCV 88.9 fL (80.0-100.0); Mean Platelet Volume 6.9; Monocytes # (A) 0.4 k/uL (0-1.0); Monocytes % (A) 4 %; Neutrophils # (A) 6.9 k/uL (1.3-7.7); Neutrophils % (A) 67 %; Platelet Count 237 k/uL (150-450); RBC 4.44 m/uL (4.30-5.90); RDW 13.4 % (11.5-15.5); WBC 10.4 k/uL (3.8-10.6)
[2018-05-15 16:35] LABS: ALT 20 U/L (21-72); AST 28 U/L (17-59); Albumin 4.2 g/dL (3.5-5.0); Alkaline Phosphatase 54 U/L (38-126); Anion Gap 9 mmol/L; Blood Urea Nitrogen 11 mg/dL (9-20); Calcium 9.9 mg/dL (8.4-10.2); Carbon Dioxide 26 mmol/L (22-30); Chloride 106 mmol/L (98-107); Glucose 103 mg/dL (74-99); Potassium 4.5 mmol/L (3.5-5.1); Sodium 141 mmol/L (137-145); Total Bilirubin 0.7 mg/dL (0.2-1.3); Total Protein 6.8 g/dL (6.3-8.2)
[2018-05-15 16:37] LABS: Creatine Kinase 71 U/L (55-170)
[2018-05-15] MEDS ORDERED: LORazepam 2 MG/ML INJ IV STA (16:38)
[2018-05-15 16:42] LABS: Partial Thromboplastin Time 26.8 sec (22.0-30.0); Prothrombin Time 10.1 sec (9.0-12.0)
[2018-05-15 16:50] LABS: Creatine Kinase MB 1.8 ng/mL (0.0-2.4); Troponin I <0.012 ng/mL (0.000-0.034)
--- NOTE | 2018-05-15 16:52 | ED ---
General Adult HPI - General Chief complaint: Neuro Symptoms/Deficit Stated complaint: PARKINSON ISSUE Time Seen by Provider: 05/15/18 15:45 Source: patient, EMS, RN notes reviewed, old records reviewed Mode of arrival: EMS Limitations: no limitations - History of Present Illness Initial comments: Patient is a 72-year-old male presenting to the emergency room today by EMS, with chief complaint of a tremor. Patient does admit that it's shortly after breakfast started having a tremor in his upper extremities and his neck. States it's causing him to contract. States that it's seems to be happening every minute or so. Patient states that as the day has gone on seems to be increasing. at bedside providing further history stating that he was recently seen in the hospital 3 or 4 days ago for similar involuntary movements. States that they thought could be due to a medication that he had discontinued for. At time and then restarted. States it is a drop that he puts on his tongue to help with relieving. Patient denies any other complaints or symptoms. Patient's states that they do follow-up with a neurologist through [facility] Dr. Burgos who they have been in contact with. Patient denies any recent fever, chills, shortness of breath, chest pain, back pain, abdominal pain , nausea or vomiting, headaches or visual changes, or any other complaints. - Related Data Home Medications Medication Instructions Recorded Confirmed Acetaminophen with Codeine 1 - 2 tab PO QID PRN 04/01/18 05/15/18 [Tylenol w/codeine #3] Atorvastatin Calcium [Lipitor] 10 mg PO HS 04/01/18 05/15/18 Carbidopa-Levodopa ER 50-200Mg 1 tab PO QID 04/01/18 05/15/18 [Sinemet CR 50-200 mg] Cholecalciferol (Vitamin D3) 2,000 unit PO DAILY 04/01/18 05/15/18 [Vitamin D3] Donepezil HCl [Aricept] 10 mg PO DAILY 04/01/18 05/15/18 Metoprolol Succinate [Toprol XL] 200 mg PO HS 04/01/18 05/15/18 metFORMIN HCL [Glucophage] 500 mg PO BID 04/01/18 05/15/18 Previous Rx's Medication Instructions Recorded LORazepam [Ativan] 0.5 mg PO TID 3 Days #9 tab 05/15/18 Allergies Allergy/AdvReac Type Severity Reaction Status Date / Time No Known Allergies Allergy Verified 05/15/18 16:53 Review of Systems ROS Statement: Those systems with pertinent positive or pertinent negative responses have been documented in the HPI. ROS Other: All systems not noted in ROS Statement are negative. Past Medical History Past Medical History: Diabetes Mellitus, Hypertension Additional Past Medical History / Comment(s): Parkinsons, deep brain stimulator , Type 2 diabetes History of Any Multi-Drug Resistant Organisms: None Reported Past Surgical History: Heart Catheterization Additional Past Surgical History / Comment(s): Deep brain stimulator:2007 and battery replacement in stimulator Past Anesthesia/Blood Transfusion Reactions: No Reported Reaction Past Psychological History: No Psychological Hx Reported Smoking Status: Never smoker Past Alcohol Use History: None Reported Past Drug Use History: None Reported - Past Family History Brother(s) Family Medical History: Diabetes Mellitus Additional Family Medical History / Comment(s): Parkinsons Father Additional Family Medical History / Comment(s): Past away from a stroke General Exam - General Exam Comments Initial Comments: General: The patient is awake and alert, in no distress, and does not appear acutely ill. Eye: Pupils are equal, round and reactive to light. Extra-ocular movements are intact. No nystagmus. There is normal conjunctiva bilaterally. No signs of icterus. Ears, nose, mouth and throat: There are moist mucous membranes and no oral lesions. Neck: The neck is supple, there is no tenderness or JVD. Cardiovascular: There is a regular rate and rhythm. No murmur, rub or gallop is appreciated. Respiratory: Lungs are clear to auscultation, respirations are non-labored, breath sounds are equal. No wheezes, stridor, rales, or rhonchi. Gastrointestinal: Soft, non-distended, non-tender abdomen without masses or organomegaly noted. There is no rebound or guarding present. No CVA tenderness. Musculoskeletal: Normal ROM, no tenderness. Sensation intact. Strength 5/5. Pulses equal bilaterally 2+. Neurological: A&O x 3. CN II-XII intact. Involuntary spasms of the upper extremities bilaterally and neck with contraction-like movement. Coordination appears grossly intact. Speech is normal. Skin: Skin is warm and dry and no rashes or lesions are noted. Psychiatric: Cooperative, appropriate mood & affect, normal judgment. Limitations: no limitations Course Vital Signs 05/15/18 05/15/18 05/15/18 15:38 15:47 17:09 Temperature 98.6 F Pulse Rate 65 62 59 L Respiratory 20 Rate Blood Pressure 182/113 175/94 170/90 O2 Sat by Pulse 96 95 Oximetry 05/15/18 18:09 Temperature Pulse Rate 63 Respiratory Rate Blood Pressure 148/91 O2 Sat by Pulse 98 Oximetry EKG Findings - EKG Comments: EKG Findings:: EKG performed at 1757: Shows normal sinus rhythm at 69 beats per minute. NC interval 148. QRS 70. QT/QTc 412/441. No acute changes Medical Decision Making - Medical Decision Making Patient's been reexamined at this time and is resting completely. His jerking and contractions of the upper extremities and had had seizures. He was given Ativan IV here the emergency room which relieved his symptoms. Patient denies any complaints currently. CT of the head and neck was reviewed is negative for any acute abnormality. Patient's blood work and urinalysis is negative. Case was discussed with his neurologist Dr. Burgos to [facility]. At this time recommends trying to set up an EEG has faxed over prescription to have EEG performed. They will be following up next week to have this done. He does recommend continuing with a low-dose of Ativan to go home with to use for myoclonic jerk as needed 3 times a day. Patient and family at bedside are advised that they should return to emergency room symptoms increase worsen appropriate concerns. - Lab Data Result diagrams: 05/15/18 16:06 05/15/18 16:06 Lab Results 05/15/18 05/15/18 05/15/18 Range/Units 16:06 16:06 16:06 WBC 10.4 (3.8-10.6) k/uL RBC 4.44 (4.30-5.90) m/uL Hgb 12.7 L (13.0-17.5) gm/dL Hct 39.5 (39.0-53.0) % MCV 88.9 (80.0-100.0) fL MCH 28.6 (25.0-35.0) pg MCHC 32.2 (31.0-37.0) g/dL RDW 13.4 (11.5-15.5) % Plt Count 237 (150-450) k/uL Neutrophils % 67 % Lymphocytes % 25 % Monocytes % 4 % Eosinophils % 2 % Basophils % 1 % Neutrophils # 6.9 (1.3-7.7) k/uL Lymphocytes # 2.6 (1.0-4.8) k/uL Monocytes # 0.4 (0-1.0) k/uL Eosinophils # 0.2 (0-0.7) k/uL Basophils # 0.1 (0-0.2) k/uL PT 10.1 (9.0-12.0) sec INR 1.0 (<1.2) APTT 26.8 (22.0-30.0) sec Sodium 141 (137-145) mmol/L Potassium 4.5 (3.5-5.1) mmol/L Chloride 106 (98-107) mmol/L Carbon Dioxide 26 (22-30) mmol/L Anion Gap 9 mmol/L BUN 11 (9-20) mg/dL Creatinine 0.73 (0.66-1.25) mg/dL Est GFR (CKD-EPI)AfAm >90 (>60 ml/min/1.73 sqM) Est GFR (CKD-EPI)NonAf >90 (>60 ml/min/1.73 sqM) Glucose 103 H (74-99) mg/dL Calcium 9.9 (8.4-10.2) mg/dL Total Bilirubin 0.7 (0.2-1.3) mg/dL AST 28 (17-59) U/L ALT 20 L (21-72) U/L Alkaline Phosphatase 54 (38-126) U/L Total Creatine Kinase (55-170) U/L CK-MB (CK-2) (0.0-2.4) ng/mL CK-MB (CK-2) Rel Index Troponin I (0.000-0.034) ng/mL Total Protein 6.8 (6.3-8.2) g/dL Albumin 4.2 (3.5-5.0) g/dL Urine Color Urine Appearance (Clear) Urine pH (5.0-8.0) Ur Specific [place] (1.001-1.035) Urine Protein (Negative) Urine Glucose (UA) (Negative) Urine Ketones (Negative) Urine Blood (Negative) Urine Nitrite (Negative) Urine Bilirubin (Negative) Urine Urobilinogen (<2.0) mg/dL Ur Leukocyte Esterase (Negative) 05/15/18 05/15/18 Range/Units 16:06 18:13 WBC (3.8-10.6) k/uL RBC (4.30-5.90) m/uL Hgb (13.0-17.5) gm/dL Hct (39.0-53.0) % MCV (80.0-100.0) fL MCH (25.0-35.0) pg MCHC (31.0-37.0) g/dL RDW (11.5-15.5) % Plt Count (150-450) k/uL Neutrophils % % Lymphocytes % % Monocytes % % Eosinophils % % Basophils % % Neutrophils # (1.3-7.7) k/uL Lymphocytes # (1.0-4.8) k/uL Monocytes # (0-1.0) k/uL Eosinophils # (0-0.7) k/uL Basophils # (0-0.2) k/uL PT (9.0-12.0) sec INR (<1.2) APTT (22.0-30.0) sec Sodium (137-145) mmol/L Potassium (3.5-5.1) mmol/L Chloride (98-107) mmol/L Carbon Dioxide (22-30) mmol/L Anion Gap mmol/L BUN (9-20) mg/dL Creatinine (0.66-1.25) mg/dL Est GFR (CKD-EPI)AfAm (>60 ml/min/1.73 sqM) Est GFR (CKD-EPI)NonAf (>60 ml/min/1.73 sqM) Glucose (74-99) mg/dL Calcium (8.4-10.2) mg/dL Total Bilirubin (0.2-1.3) mg/dL AST (17-59) U/L ALT (21-72) U/L Alkaline Phosphatase (38-126) U/L Total Creatine Kinase 71 (55-170) U/L CK-MB (CK-2) 1.8 (0.0-2.4) ng/mL CK-MB (CK-2) Rel Index 2.5 Troponin I <0.012 (0.000-0.034) ng/mL Total Protein (6.3-8.2) g/dL Albumin (3.5-5.0) g/dL Urine Color Light Yellow Urine Appearance Clear (Clear) Urine pH 6.0 (5.0-8.0) Ur Specific [place] 1.010 (1.001-1.035) Urine Protein Negative (Negative) Urine Glucose (UA) Negative (Negative) Urine Ketones Negative (Negative) Urine Blood Negative (Negative) Urine Nitrite Negative (Negative) Urine Bilirubin Negative (Negative) Urine Urobilinogen <2.0 (<2.0) mg/dL Ur Leukocyte Esterase Negative (Negative) Disposition Clinical Impression: Myoclonic jerking Disposition: HOME SELF-CARE Condition: Good Instructions: Tremors (ED) Additional Instructions: Please use medication as discussed. Please follow-up with neurology/family doctor in the next 2 days of symptoms have not improved. Please return to emergency room if the symptoms increase or worsen or for any other concerns. Prescriptions: LORazepam [Ativan] 0.5 mg PO TID 3 Days #9 tab Is patient prescribed a controlled substance at d/c from ED?: No Referrals: Davide Buchanan MD [Primary Care Provider] - 1-2 days Time of Disposition: 19:00
--- NOTE | 2018-05-15 17:08 | CT ---
EXAMINATION TYPE: CT brain wo con DATE OF EXAM: 05/15/2018 COMPARISON: 05/12/2018 HISTORY: Tremor. CT DLP: 1235.4 mGycm Automated exposure control for dose reduction was used. FINDINGS: There are bilateral thalamic implants. There is cerebral cortical atrophy. There is no mass effect no r midline shift. There is no sign of intracranial hemorrhage. The calvarium is intact. There is 8 mm rounded hypodensity anterior right internal capsule consistent with old lacunar infarct. 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 NO ACUTE INTRACRANIAL ABNORMALITY. NO CHANGE .
[2018-05-15 18:33] LABS: Appearance,Urine Clear (Clear); Bilirubin,Urine Negative (Negative); Blood,Urine Negative (Negative); Color,Urine Light Yellow; Glucose,Urine (UA) Negative (Negative); Ketones,Urine Negative (Negative); Leukocyte Esterase,Urine Negative (Negative); Nitrite,Urine Negative (Negative); Protein,Urine Negative (Negative); Urobilinogen,Urine <2.0 mg/dL (<2.0)
[2018-05-15 19:16] VITALS: BP 153/94; PULSE 58; RESP 16
== END 2018-05-15 19:16 | disposition home or self-care (01) ==
LOC: EDBD → EC 15:35
DX: G25.3 Myoclonus (principal); I10 Essential (primary) hypertension; E11.9 Type 2 diabetes mellitus without complications; G20 Parkinson's disease; Z79.84 Long term (current) use of oral hypoglycemic drugs; Z79.899 Other long term (current) drug therapy; Z96.89 Presence of other specified functional implants; Z95.818 Presence of other cardiac implants and grafts
CPT/HCPCS: 36415; 80053; 82550; 82553; 84484; 85025; 85610; 85730; 81003; 70450; 99285; 96374; J2060

== ENCOUNTER 2018-05-17 11:52 | Emergency (ER) | payer MEDICARE, BC ==
[2018-05-17] MEDS ORDERED: SODIUM CHLORIDE 0.9% 1,000 ML IV STA (12:19)
--- NOTE | 2018-05-17 12:28 | ED ---
General Adult HPI - General Chief complaint: Neuro Symptoms/Deficit Stated complaint: Poss Stroke Time Seen by Provider: 05/17/18 12:19 Source: patient, RN notes reviewed Mode of arrival: wheelchair Limitations: no limitations - History of Present Illness Initial comments: 72-year-old male history of Parkinson's and dementia presents with chief complaint of left head numbness and left arm numbness. Symptoms began at approximately 9 AM this morning. Patient's did call his neurologist at the [facility] who recommended patient present for evaluation. Symptoms resolved in the in between time between 9 AM and 12:30 the time of presentation. He developed some left arm pain and some chest pain during this time which is also resolved. Patient has no complaints of focal numbness or weakness at the time my evaluation. No headache. No chest pain. He was seen by his neurologist within the past several days and his donepezil was increased to 20 mg daily. Patient had been seen earlier this month with worsening confusion. He does have history of deep brain stimulator. - Related Data Home Medications Medication Instructions Recorded Confirmed Acetaminophen with Codeine 1 - 2 tab PO QID PRN 04/01/18 05/17/18 [Tylenol w/codeine #3] Atorvastatin Calcium [Lipitor] 10 mg PO HS 04/01/18 05/17/18 Carbidopa-Levodopa ER 50-200Mg 1 tab PO TID 04/01/18 05/17/18 [Sinemet CR 50-200 mg] Donepezil HCl [Aricept] 20 mg PO DAILY 04/01/18 05/17/18 Metoprolol Succinate [Toprol XL] 200 mg PO HS 04/01/18 05/17/18 metFORMIN HCL [Glucophage] 500 mg PO BID 04/01/18 05/17/18 Aspirin EC [Ecotrin Low Dose] 81 mg PO DAILY 05/17/18 05/17/18 Aspirin EC [Ecotrin] 325 mg PO ONCE PRN 05/17/18 05/17/18 Cholecalciferol [Vitamin D3] 5,000 unit PO DAILY 05/17/18 05/17/18 Allergies Allergy/AdvReac Type Severity Reaction Status Date / Time No Known Allergies Allergy Verified 05/17/18 13:19 Review of Systems ROS Statement: Those systems with pertinent positive or pertinent negative responses have been documented in the HPI. ROS Other: All systems not noted in ROS Statement are negative. Past Medical History Past Medical History: Diabetes Mellitus, Hypertension Additional Past Medical History / Comment(s): Parkinsons, deep brain stimulator , Type 2 diabetes History of Any Multi-Drug Resistant Organisms: None Reported Past Surgical History: Heart Catheterization Additional Past Surgical History / Comment(s): Deep brain stimulator:2007 and battery replacement in stimulator Past Anesthesia/Blood Transfusion Reactions: No Reported Reaction Past Psychological History: No Psychological Hx Reported Smoking Status: Never smoker Past Alcohol Use History: None Reported Past Drug Use History: None Reported - Past Family History Brother(s) Family Medical History: Diabetes Mellitus Additional Family Medical History / Comment(s): Parkinsons Father Additional Family Medical History / Comment(s): Past away from a stroke General Exam Limitations: no limitations General appearance: alert, in no apparent distress Head exam: Present: atraumatic, normocephalic Eye exam: Present: normal appearance, PERRL, EOMI ENT exam: Present: normal exam Neck exam: Present: normal inspection. Absent: tenderness, meningismus Respiratory exam: Present: normal lung sounds bilaterally. Absent: respiratory distress, wheezes Cardiovascular Exam: Present: regular rate, normal rhythm GI/Abdominal exam: Present: soft. Absent: distended, tenderness Extremities exam: Present: normal inspection, normal capillary refill. Absent: pedal edema Neurological exam: Present: alert, oriented X3, CN II-XII intact, motor sensory deficit (NIH of 0 at the time my evaluation) Psychiatric exam: Present: flat affect Skin exam: Present: warm, dry, intact. Absent: cyanosis, diaphoretic Course Vital Signs 05/17/18 05/17/18 12:00 14:22 Temperature 96.9 F L Pulse Rate 69 72 Respiratory 16 16 Rate Blood Pressure 177/94 158/96 O2 Sat by Pulse 97 97 Oximetry EKG Findings - EKG Comments: EKG Findings:: EKG: Normal sinus rhythm, LVH, rate of 71, UT interval 154, QRS duration 86, QTC 443, no ST segment changes. Medical Decision Making - Medical Decision Making 72-year-old male presenting with left head numbness and left arm numbness. Patient's symptoms resolved prior to arrival. Symptoms concerning for stroke or TIA. Patient receives CAT scan which is negative for intracranial hemorrhage or acute findings, CT angiography is negative for occlusion or aneurysm. Chest x-ray shows mild cardiomegaly, no acute findings. Patient's CBC, CMP is within normal limits. Troponin negative. Patient has a deep brain stimulator and therefore is unable to receive MRI. I discussed the case at length with his neurologist Dr. Burgos. At this time recommends patient took aspirin daily. And she will attempt to find out if patient's deep brainstem later is compatible with MRI and will order this as an outpatient. Patient will also follow-up with his primary care physician regarding echo. Patient's symptoms completely resolved, exam remains nonfocal. Dr. Burgos agreeable with discharge at this time. Please return with worsening or changing symptoms. - Lab Data Result diagrams: 05/17/18 12:32 05/17/18 12:32 Lab Results 05/17/18 05/17/18 05/17/18 Range/Units 12:32 12:32 12:32 WBC 9.4 (3.8-10.6) k/uL RBC 4.47 (4.30-5.90) m/uL Hgb 13.1 (13.0-17.5) gm/dL Hct 39.4 (39.0-53.0) % MCV 88.0 (80.0-100.0) fL MCH 29.4 (25.0-35.0) pg MCHC 33.4 (31.0-37.0) g/dL RDW 13.6 (11.5-15.5) % Plt Count 237 (150-450) k/uL Neutrophils % 66 % Lymphocytes % 26 % Monocytes % 5 % Eosinophils % 2 % Basophils % 1 % Neutrophils # 6.3 (1.3-7.7) k/uL Lymphocytes # 2.4 (1.0-4.8) k/uL Monocytes # 0.5 (0-1.0) k/uL Eosinophils # 0.1 (0-0.7) k/uL Basophils # 0.1 (0-0.2) k/uL PT (9.0-12.0) sec INR (<1.2) APTT (22.0-30.0) sec Sodium 141 (137-145) mmol/L Potassium 4.5 (3.5-5.1) mmol/L Chloride 107 (98-107) mmol/L Carbon Dioxide 20 L (22-30) mmol/L Anion Gap 14 mmol/L BUN 14 (9-20) mg/dL Creatinine 0.77 (0.66-1.25) mg/dL Est GFR (CKD-EPI)AfAm >90 (>60 ml/min/1.73 sqM) Est GFR (CKD-EPI)NonAf 90 (>60 ml/min/1.73 sqM) Glucose 149 H (74-99) mg/dL Calcium 10.0 (8.4-10.2) mg/dL Total Bilirubin 0.7 (0.2-1.3) mg/dL AST 31 (17-59) U/L ALT 23 (21-72) U/L Alkaline Phosphatase 61 (38-126) U/L Total Creatine Kinase 59 (55-170) U/L CK-MB (CK-2) 1.5 (0.0-2.4) ng/mL CK-MB (CK-2) Rel Index 2.5 Troponin I <0.012 (0.000-0.034) ng/mL Total Protein 7.1 (6.3-8.2) g/dL Albumin 4.4 (3.5-5.0) g/dL Urine Color Urine Appearance (Clear) Urine pH (5.0-8.0) Ur Specific [place] (1.001-1.035) Urine Protein (Negative) Urine Glucose (UA) (Negative) Urine Ketones (Negative) Urine Blood (Negative) Urine Nitrite (Negative) Urine Bilirubin (Negative) Urine Urobilinogen (<2.0) mg/dL Ur Leukocyte Esterase (Negative) 05/17/18 05/17/18 Range/Units 12:32 13:25 WBC (3.8-10.6) k/uL RBC (4.30-5.90) m/uL Hgb (13.0-17.5) gm/dL Hct (39.0-53.0) % MCV (80.0-100.0) fL MCH (25.0-35.0) pg MCHC (31.0-37.0) g/dL RDW (11.5-15.5) % Plt Count (150-450) k/uL Neutrophils % % Lymphocytes % % Monocytes % % Eosinophils % % Basophils % % Neutrophils # (1.3-7.7) k/uL Lymphocytes # (1.0-4.8) k/uL Monocytes # (0-1.0) k/uL Eosinophils # (0-0.7) k/uL Basophils # (0-0.2) k/uL PT 9.8 (9.0-12.0) sec INR 1.0 (<1.2) APTT 27.7 (22.0-30.0) sec Sodium (137-145) mmol/L Potassium (3.5-5.1) mmol/L Chloride (98-107) mmol/L Carbon Dioxide (22-30) mmol/L Anion Gap mmol/L BUN (9-20) mg/dL Creatinine (0.66-1.25) mg/dL Est GFR (CKD-EPI)AfAm (>60 ml/min/1.73 sqM) Est GFR (CKD-EPI)NonAf (>60 ml/min/1.73 sqM) Glucose (74-99) mg/dL Calcium (8.4-10.2) mg/dL Total Bilirubin (0.2-1.3) mg/dL AST (17-59) U/L ALT (21-72) U/L Alkaline Phosphatase (38-126) U/L Total Creatine Kinase (55-170) U/L CK-MB (CK-2) (0.0-2.4) ng/mL CK-MB (CK-2) Rel Index Troponin I (0.000-0.034) ng/mL Total Protein (6.3-8.2) g/dL Albumin (3.5-5.0) g/dL Urine Color Light Yellow Urine Appearance Clear (Clear) Urine pH 6.0 (5.0-8.0) Ur Specific [place] 1.028 (1.001-1.035) Urine Protein Negative (Negative) Urine Glucose (UA) Negative (Negative) Urine Ketones Negative (Negative) Urine Blood Negative (Negative) Urine Nitrite Negative (Negative) Urine Bilirubin Negative (Negative) Urine Urobilinogen <2.0 (<2.0) mg/dL Ur Leukocyte Esterase Negative (Negative) Disposition Clinical Impression: Transient cerebral ischemia Disposition: HOME SELF-CARE Condition: Good Instructions: Transient Ischemic Attack (ED) Additional Instructions: Please follow up with Dr. Burgos regarding possible MRI.. Please follow up with Dr. Buchanan regarding cardiac echo. Please take aspirin daily. Is patient prescribed a controlled substance at d/c from ED?: No Referrals: Davide Buchanan MD [Primary Care Provider] - 1-2 days Time of Disposition: 15:28
[2018-05-17 12:54] LABS: Basophils # (A) 0.1 k/uL (0-0.2); Basophils % (A) 1 %; Eosinophils # (A) 0.1 k/uL (0-0.7); Eosinophils % (A) 2 %; HCT 39.4 % (39.0-53.0); HGB 13.1 gm/dL (13.0-17.5); Lymphocytes # (A) 2.4 k/uL (1.0-4.8); Lymphocytes % (A) 26 %; MCH 29.4 pg (25.0-35.0); MCHC 33.4 g/dL (31.0-37.0); Mean Platelet Volume 7.5; Monocytes # (A) 0.5 k/uL (0-1.0); Monocytes % (A) 5 %; Neutrophils # (A) 6.3 k/uL (1.3-7.7); Neutrophils % (A) 66 %; Platelet Count 237 k/uL (150-450); RBC 4.47 m/uL (4.30-5.90); RDW 13.6 % (11.5-15.5); WBC 9.4 k/uL (3.8-10.6)
[2018-05-17 13:02] LABS: Partial Thromboplastin Time 27.7 sec (22.0-30.0); Prothrombin Time 9.8 sec (9.0-12.0)
[2018-05-17 13:05] LABS: Albumin 4.4 g/dL (3.5-5.0); Anion Gap 14 mmol/L; Blood Urea Nitrogen 14 mg/dL (9-20); Carbon Dioxide 20 mmol/L (22-30); Chloride 107 mmol/L (98-107); Glucose 149 mg/dL (74-99); Sodium 141 mmol/L (137-145); Total Bilirubin 0.7 mg/dL (0.2-1.3); Total Protein 7.1 g/dL (6.3-8.2)
[2018-05-17 13:06] LABS: ALT 23 U/L (21-72); AST 31 U/L (17-59); Alkaline Phosphatase 61 U/L (38-126); Potassium 4.5 mmol/L (3.5-5.1)
[2018-05-17 13:16] LABS: Creatine Kinase 59 U/L (55-170)
--- NOTE | 2018-05-17 13:21 | XR ---
EXAMINATION TYPE: XR chest 2V DATE OF EXAM: 05/17/2018 HISTORY: altered mental status. REFERENCE: Previous study dated 05/12/2018. FINDINGS: There are bilateral neural stimulator is in place. Heart size upper limits of normal. Visualized portions of the lungs appear clear. There is no pleural or pericardial fluid. There is a 50% wedge compression fracture of L1. This has been present previou sly. IMPRESSION: MILD CARDIOMEGALY.
[2018-05-17 13:29] LABS: Creatine Kinase MB 1.5 ng/mL (0.0-2.4); Troponin I <0.012 ng/mL (0.000-0.034)
[2018-05-17 13:46] LABS: Appearance,Urine Clear (Clear); Bilirubin,Urine Negative (Negative); Blood,Urine Negative (Negative); Color,Urine Light Yellow; Glucose,Urine (UA) Negative (Negative); Ketones,Urine Negative (Negative); Leukocyte Esterase,Urine Negative (Negative); Nitrite,Urine Negative (Negative); Protein,Urine Negative (Negative); Specific Gravity,Urine 1.028 (1.001-1.035); Urobilinogen,Urine <2.0 mg/dL (<2.0)
--- NOTE | 2018-05-17 14:01 | CT ---
EXAMINATION TYPE: CT brain wo con for TPA DATE OF EXAM: 05/17/2018 COMPARISON: Previous study dated 05/15/2018. HISTORY: Neuro defecits CT DLP: 1033 mGycm Automated exposure control for dose reduction was used. FINDINGS: Bilateral neural stimulator is in place. There are mild atrophic changes. There is diffuse periventricular white matter lucency, compatible wi th chronic white matter ischemic change. There is no acute focal lesion, mass effect or midline shift identified. I do not see evidence of intra- Visualized portions of the paranasal sinuses and mastoids are clear. IMPRESSION: NO ACUTE INTRACRANIAL ABNORMALITY.
--- NOTE | 2018-05-17 14:13 | CT ---
EXAMINATION TYPE: CT angio head neck DATE OF EXAM: 05/17/2018 HISTORY: Stroke. COMPARISON: None. Automated Exposure Control for Dose Reduction was Utilized. TECHNIQUE: CTA scan of the neck is performed with IV Contrast, patient injected with_undisclosed efrain unt of contrast, axial images are obtained, coronal and sagittal reformatted images are reviewed. Thr ee-D reconstructed images are created on an independent workstation and reviewed. FINDINGS: Visualized portions of the lungs are clear. The major salivary glands are unremarkable. Parapharyngeal, oropharyngeal and laryngeal soft tissues are normal. The thyroid gland enhances homogeneously. There is no significant adenopathy. Vertebral body height and alignment are maintained. Atlantoaxial relationships are normal. There is degenerative disc disease and hypertrophic spondylosis most marked at C5-6 and C6-7. There is a normal origin of the great vessels. There is no significant stenosis in either carotid art ktahrin. There is no significant calcification involving either internal carotid artery. The vertebral ar teries are codominant. Imaging of the [place] is suboptimal due to streak artifact from the patient's neural stimul ators. There is normal arborization of both middle cerebral arteries. Both anterior communicating art eries are patent. No sizable aneurysm is seen. IMPRESSION: 1. NO SIGNIFICANT CAROTID ARTERY STENOSIS. 2. SUBOPTIMAL BUT NORMAL-APPEARING CTA OF THE [place].
[2018-05-17 16:02] VITALS: BP 150/89; PULSE 74; RESP 18; TEMP 97.2
== END 2018-05-17 15:58 | disposition home or self-care (01) ==
LOC: EC 11:52
DX: G45.9 Transient cerebral ischemic attack, unspecified (principal); I11.9 Hypertensive heart disease without heart failure; E11.9 Type 2 diabetes mellitus without complications; G20 Parkinson's disease; F03.90 Unspecified dementia, unspecified severity, without behavioral disturbance, psychotic disturbance, mood disturbance, and anxiety; Z96.89 Presence of other specified functional implants; Z95.818 Presence of other cardiac implants and grafts; Z79.82 Long term (current) use of aspirin; Z79.84 Long term (current) use of oral hypoglycemic drugs; Z79.899 Other long term (current) drug therapy
CPT/HCPCS: 36415; 93005; 80053; 82550; 82553; 84484; 85025; 85610; 85730; 81003; 71046; 70496; 70450; 70498; 99284; 96360; Q9967

== ENCOUNTER → 2018-06-16 | Outpatient (CLI) | payer MEDICARE, BC ==
--- NOTE | 2018-06-17 07:17 | US ---
EXAMINATION TYPE: US bladder DATE OF EXAM: 06/16/2018 COMPARISON: NONE CLINICAL HISTORY: R32 Urinary retention I10 Hypertension. Urinary frequency EXAM MEASUREMENTS: Post Void Residual Volume: 22.1 mL Color Doppler performed to assess ureteral jets. Bilateral Jets seen: yes Normal Post Void Residual (less than 50ml): yes IMPRESSION: 1. Normal urinary bladder.
--- NOTE | 2018-06-17 10:55 | ECHOF ---
Referral Reason:ESSENTIAL HYPERTENSION I10 MEASUREMENTS -------- HEIGHT: 167.6 cm WEIGHT: 70.3 kg BP: IVSd: 1.0 cm (0.6 - 1.1) LVIDd: 3.7 cm (3.9 - 5.3) LVPWd: 1.1 cm (0.6 - 1.1) IVSs: 1.3 cm LVIDs: 1.3 cm LVPWs: 1.5 cm LAESV Index (A-L): 17.27 ml/m Ao Diam: 2.9 cm (2.0 - 3.7) AV Cusp: 1.7 cm (1.5 - 2.6) LA Diam: 3.6 cm (2.7 - 3.8) MV EXCURSION: 13.189 mm (> 18.000) MV EF SLOPE: 57 mm/s (70 - 150) EPSS: 0.6 cm MV E Sahil: 0.82 m/s MV DecT: 293 ms MV A Sahil: 0.62 m/s MV E/A Ratio: 1.33 RAP: 5.00 mmHg RVSP: 21.29 mmHg FINDINGS -------- Sinus rhythm. This was a technically good study. The left ventricular size is normal. Left ventricular wall thickness is normal. Overall left vent ricular systolic function is normal with, an EF between 55 - 60 %. The right ventricle is normal in size and function. The left atrium is normal in size. The right atrium is normal in size. The aortic valve is trileaflet, and appears structurally normal. No aortic stenosis or regurgitation. The mitral valve is normal. Mild mitral regurgitation is present. Mild tricuspid regurgitation present. Right ventricular systolic pressure is normal at < 35 mmHg. The right ventricular systolic pressure, as measured by Doppler, is 21.29mmHg. There is no pulmonic regurgitation present. The aortic root size is normal. Normal inferior vena cava with normal inspiratory collapse consistent with estimated right atrial pre ssure of 5 mmHg. There is no pericardial effusion. CONCLUSIONS -------- 1. Sinus rhythm. 2. This was a technically good study. 3. The left ventricular size is normal. 4. Left ventricular wall thickness is normal. 5. Overall left ventricular systolic function is normal with, an EF between 55 - 60 %. 6. The left atrium is normal in size. 7. The aortic valve is trileaflet, and appears structurally normal. No aortic stenosis or regurgitati on. 8. Mild mitral regurgitation is present. 9. Mild tricuspid regurgitation present. 10. Right ventricular systolic pressure is normal at < 35 mmHg. 11. There is no pulmonic regurgitation present. 12. The aortic root size is normal. 13. Normal inferior vena cava with normal inspiratory collapse consistent with estimated right atrial pressure of 5 mmHg. 14. There is no pericardial effusion. METAL SPRAYER: Lakshmi Be RDCS
== END ==
LOC: RADUSWWP 14:13
PROVIDERS: ATTEND Family Medicine
DX: R32 Unspecified urinary incontinence (principal); I08.1 Rheumatic disorders of both mitral and tricuspid valves
CPT/HCPCS: 76857; 93306

== ENCOUNTER → 2018-10-20 | Outpatient (CLI) | payer MEDICARE, BC ==
--- NOTE | 2018-10-20 15:10 | XR ---
EXAMINATION TYPE: XR chest 2V DATE OF EXAM: 10/20/2018 COMPARISON: 05/17/2018 INDICATION: Presurgical clearance TECHNIQUE: Frontal and lateral views of the chest are obtained. FINDINGS: The heart size is normal. The pulmonary vasculature is normal. The lungs are clear. 2 electronic devices reconstructed into the neck and out of the [id number] a re present. IMPRESSION: 1. No acute pulmonary process.
== END | disposition home or self-care (01) ==
LOC: RADXRMAIN 14:47
PROVIDERS: ATTEND Family Medicine
DX: Z01.818 Encounter for other preprocedural examination (principal)
CPT/HCPCS: 71046

== ENCOUNTER → 2021-11-12 | Outpatient (CLI) | payer MEDICARE, BC ==
--- NOTE | 2021-11-12 12:57 | FL ---
EXAMINATION TYPE: FL barium swallow w video DATE OF EXAM: 11/12/2021 MODIFIED SWALLOW / DEGLUTITION STUDY CLINICAL HISTORY: Dysphagia. History of Parkinson's disease. TECHNIQUE: Deglutition study is performed utilizing thin liquid barium, honey and nectar thick liqui d barium, barium thick applesauce, and barium coated cracker. 2 minutes 46 seconds of fluoro time and 0 images obtained. COMPARISON: None. FINDINGS: The oral and pharyngeal phases show some delay in initiation or swallowing with modalities tested. Satisfactory propagation with all modalities tested. Satisfactory mastication is seen with so lid modalities tested. There Is single episode of silent aspiration with nectar thick liquid barium. No penetration or aspiration with other modalities tested No significant pharyngeal residue was appr eciated. Overlying cranial stimulator leads are noted. IMPRESSION: Single episode of silent aspiration with nectar thick liquid barium. No penetration or as piration with other modalities tested. Please refer to speech therapist notes for further details if necessary.
== END | disposition home or self-care (01) ==
LOC: RADUSWWP 11-07 11:08 → RADFLMAIN 11:38
PROVIDERS: ATTEND Family Medicine
DX: R13.10 Dysphagia, unspecified (principal); G20 Parkinson's disease
CPT/HCPCS: 74230

== ENCOUNTER 2022-01-26 11:15 | Emergency (ER) | payer MEDICARE, BC ==
[2022-01-26] MEDS ORDERED: SODIUM CHLORIDE 0.9% 1,000 ML IV ONE (11:29)
[2022-01-26] MEDS ORDERED: ACETAMINOPHEN IV (For NPO) 1,000 MG in EMPTY BAG 1 BAG IVPB STA (11:30)
--- NOTE | 2022-01-26 11:38 | ED ---
Altered Mental Status HPI - General Chief Complaint: Altered Mental Status Stated Complaint: covid symptoms Time Seen by Provider: 01/26/22 11:24 Source: patient, family, RN notes reviewed Mode of arrival: wheelchair Limitations: altered mental status, physical limitation - History of Present Illness Initial Comments: This is a 76-year-old male presents emergency Department with for confusion, fever. states that he started having some trembling, shaking episode in which he occasionally has episodes related to his Parkinson's. states that she gave him some Ativan which does not seem to help no associated fevers morning. No recent Tylenol Motrin. Patient has an recent exposed to COVID-19. states that he is normally able to ambulate with walker but is unable to get up this point, is confused, lethargic. Patient's had no recent vomiting episodes no diarrhea constipation. Patient is in minimal URI symptoms. - Related Data Home Medications Medication Instructions Recorded Confirmed Acetaminophen with Codeine 1 - 2 tab PO QID PRN 04/01/18 01/06/19 [Tylenol w/codeine #3] Atorvastatin Calcium [Lipitor] 10 mg PO HS 04/01/18 01/06/19 Carbidopa-Levodopa ER 50-200Mg 1 tab PO TID 04/01/18 01/06/19 [Sinemet CR 50-200 mg] Donepezil HCl [Aricept] 20 mg PO DAILY 04/01/18 01/06/19 Metoprolol Succinate [Toprol XL] 200 mg PO HS 04/01/18 01/06/19 metFORMIN HCL [Glucophage] 1,000 mg PO BID 04/01/18 01/06/19 Aspirin EC [Ecotrin Low Dose] 81 mg PO DAILY 05/17/18 01/06/19 Aspirin EC [Ecotrin] 325 mg PO ONCE PRN 05/17/18 01/06/19 Cholecalciferol [Vitamin D3] 5,000 unit PO DAILY 05/17/18 01/06/19 Allergies Allergy/AdvReac Type Severity Reaction Status Date / Time No Known Allergies Allergy Verified 01/26/22 11:22 Review of Systems ROS Statement: Those systems with pertinent positive or pertinent negative responses have been documented in the HPI. ROS Other: All systems not noted in ROS Statement are negative. Past Medical History Past Medical History: Diabetes Mellitus, Hypertension Additional Past Medical History / Comment(s): Parkinsons, deep brain stimulator, Type 2 diabetes History of Any Multi-Drug Resistant Organisms: None Reported Past Surgical History: Heart Catheterization Additional Past Surgical History / Comment(s): Deep brain stimulator:2007 and battery replacement in stimulator Past Anesthesia/Blood Transfusion Reactions: No Reported Reaction Past Psychological History: No Psychological Hx Reported Past Alcohol Use History: None Reported Past Drug Use History: None Reported - Past Family History Brother(s) Family Medical History: Diabetes Mellitus Additional Family Medical History / Comment(s): Parkinsons Father Additional Family Medical History / Comment(s): Past away from a stroke General Exam Limitations: altered mental status, physical limitation General appearance: in no apparent distress, lethargic Head exam: Present: atraumatic, normocephalic, normal inspection Eye exam: Present: normal appearance, PERRL, EOMI. Absent: scleral icterus, conjunctival injection, periorbital swelling ENT exam: Present: normal exam, normal oropharynx, mucous membranes moist Neck exam: Present: normal inspection. Absent: tenderness, meningismus, lymphadenopathy Respiratory exam: Present: normal lung sounds bilaterally. Absent: respiratory distress, wheezes, rales, rhonchi, stridor Cardiovascular Exam: Present: regular rate, normal rhythm, normal heart sounds. Absent: systolic murmur, diastolic murmur, rubs, gallop, clicks Neurological exam: Absent: oriented X3 Skin exam: Present: warm, dry, intact, normal color. Absent: rash Course Vital Signs 01/26/22 01/26/22 01/26/22 11:17 12:00 12:30 Temperature 101.1 F H Pulse Rate 83 70 Respiratory 20 16 15 Rate Blood Pressure 143/82 146/85 142/102 O2 Sat by Pulse 98 95 94 L Oximetry 01/26/22 01/26/22 01/26/22 13:00 13:16 14:00 Temperature Pulse Rate 73 69 67 Respiratory 15 16 18 Rate Blood Pressure 111/68 110/58 104/60 O2 Sat by Pulse 94 L 92 L 92 L Oximetry 01/26/22 01/26/22 01/26/22 14:30 15:00 15:30 Temperature Pulse Rate 71 63 68 Respiratory 13 15 24 Rate Blood Pressure 105/62 106/60 103/62 O2 Sat by Pulse 95 95 97 Oximetry 01/26/22 15:49 Temperature 97.8 F Pulse Rate Respiratory Rate Blood Pressure O2 Sat by Pulse Oximetry Medical Decision Making - Medical Decision Making 76-year-old male presented for increased weakness, confusion, fever. Patient's found to COVID-19 positive patient did receive mom quiet otherwise. Patient bowman s remain mildly weak there was able to get up, patient is questioned to be discharged patient was offered admission and to the and which does agree the patient can go home and she'll return for any worsening changes symptoms. - Lab Data Result diagrams: 01/26/22 11:38 01/26/22 11:38 Lab Results 01/26/22 01/26/22 01/26/22 Range/Units 11:38 11:38 11:38 WBC 11.9 H (3.8-10.6) k/uL RBC 4.74 (4.30-5.90) m/uL Hgb 13.3 (13.0-17.5) gm/dL Hct 42.4 (39.0-53.0) % MCV 89.5 (80.0-100.0) fL MCH 28.0 (25.0-35.0) pg MCHC 31.2 (31.0-37.0) g/dL RDW 13.1 (11.5-15.5) % Plt Count 256 (150-450) k/uL MPV 7.7 Neutrophils % 83 % Lymphocytes % 7 % Monocytes % 7 % Eosinophils % 1 % Basophils % 1 % Neutrophils # 9.8 H (1.3-7.7) k/uL Lymphocytes # 0.9 L (1.0-4.8) k/uL Monocytes # 0.8 (0-1.0) k/uL Eosinophils # 0.1 (0-0.7) k/uL Basophils # 0.1 (0-0.2) k/uL Sodium 140 (137-145) mmol/L Potassium 4.2 (3.5-5.1) mmol/L Chloride 102 (98-107) mmol/L Carbon Dioxide 28 (22-30) mmol/L Anion Gap 10 mmol/L BUN 19 (9-20) mg/dL Creatinine 1.03 (0.66-1.25) mg/dL Est GFR (CKD-EPI)AfAm 80 (>60 ml/min/1.73 sqM) Est GFR (CKD-EPI)NonAf 70 (>60 ml/min/1.73 sqM) Glucose 148 H (74-99) mg/dL Lactic Ac Sepsis Rflx Plasma Lactic Acid [place] (0.7-2.0) mmol/L Calcium 9.5 (8.4-10.2) mg/dL Total Bilirubin 1.0 (0.2-1.3) mg/dL AST 23 (17-59) U/L ALT 11 (4-49) U/L Alkaline Phosphatase 70 (38-126) U/L Troponin I <0.012 (0.000-0.034) ng/mL Total Protein 7.2 (6.3-8.2) g/dL Albumin 4.5 (3.5-5.0) g/dL Coronavirus (PCR) (Not Detectd) 01/26/22 01/26/22 01/26/22 Range/Units 11:38 11:38 12:14 WBC (3.8-10.6) k/uL RBC (4.30-5.90) m/uL Hgb (13.0-17.5) gm/dL Hct (39.0-53.0) % MCV (80.0-100.0) fL MCH (25.0-35.0) pg MCHC (31.0-37.0) g/dL RDW (11.5-15.5) % Plt Count (150-450) k/uL MPV Neutrophils % % Lymphocytes % % Monocytes % % Eosinophils % % Basophils % % Neutrophils # (1.3-7.7) k/uL Lymphocytes # (1.0-4.8) k/uL Monocytes # (0-1.0) k/uL Eosinophils # (0-0.7) k/uL Basophils # (0-0.2) k/uL Sodium (137-145) mmol/L Potassium (3.5-5.1) mmol/L Chloride (98-107) mmol/L Carbon Dioxide (22-30) mmol/L Anion Gap mmol/L BUN (9-20) mg/dL Creatinine (0.66-1.25) mg/dL Est GFR (CKD-EPI)AfAm (>60 ml/min/1.73 sqM) Est GFR (CKD-EPI)NonAf (>60 ml/min/1.73 sqM) Glucose (74-99) mg/dL Lactic Ac Sepsis Rflx Y Plasma Lactic Acid [place] 2.4 H* (0.7-2.0) mmol/L Calcium (8.4-10.2) mg/dL Total Bilirubin (0.2-1.3) mg/dL AST (17-59) U/L ALT (4-49) U/L Alkaline Phosphatase (38-126) U/L Troponin I (0.000-0.034) ng/mL Total Protein (6.3-8.2) g/dL Albumin (3.5-5.0) g/dL Coronavirus (PCR) Detected A (Not Detectd) Disposition Clinical Impression: COVID-19 Disposition: HOME SELF-CARE Condition: Stable Instructions (If sedation given, give patient instructions): COVID-19 (Coronavirus Disease 2019) (ED) Additional Instructions: Please return to the Emergency Department if symptoms worsen or any other concerns. Is patient prescribed a controlled substance at d/c from ED?: No Referrals: Froylan Vázquez MD [Primary Care Provider] - 1-2 days Time of Disposition: 16:06
[2022-01-26 12:02] LABS: Basophils # (A) 0.1 k/uL (0-0.2); Basophils % (A) 1 %; Eosinophils # (A) 0.1 k/uL (0-0.7); Eosinophils % (A) 1 %; HCT 42.4 % (39.0-53.0); HGB 13.3 gm/dL (13.0-17.5); Lymphocytes # (A) 0.9 k/uL (1.0-4.8); Lymphocytes % (A) 7 %; MCHC 31.2 g/dL (31.0-37.0); MCV 89.5 fL (80.0-100.0); Mean Platelet Volume 7.7; Monocytes # (A) 0.8 k/uL (0-1.0); Monocytes % (A) 7 %; Neutrophils # (A) 9.8 k/uL (1.3-7.7); Neutrophils % (A) 83 %; Platelet Count 256 k/uL (150-450); RBC 4.74 m/uL (4.30-5.90); RDW 13.1 % (11.5-15.5); WBC 11.9 k/uL (3.8-10.6)
[2022-01-26 12:15] LABS: Albumin 4.5 g/dL (3.5-5.0); Calcium 9.5 mg/dL (8.4-10.2); Potassium 4.2 mmol/L (3.5-5.1); Total Protein 7.2 g/dL (6.3-8.2)
--- NOTE | 2022-01-26 12:35 | XR ---
EXAMINATION TYPE: XR chest 2V DATE OF EXAM: 01/26/2022 12:14 PM COMPARISON: Chest radiographs from 05/17/2018 TECHNIQUE: XR chest 2V Frontal and lateral views of the chest. CLINICAL INDICATION:Male, 76 years old with history of altered mental status; FINDINGS: Lungs/Pleura: There is no evidence of pleural effusion, focal consolidation, or pneumothorax. Low loretta ng volumes. Pulmonary vascularity: Prominent perihilar vessels. Heart/mediastinum: Cardiomediastinal silhouette is unremarkable. Musculoskeletal: Multiple level degenerative disc disease changes seen throughout the spine. No acute osseous abnormality. Increased thoracic kyphosis. Other findings: Stable right neurostimulator over the right chest. Abandoned left chest neurostimulat or leads. IMPRESSION: No acute cardiopulmonary disease/process. Prominent perihilar vessels which can be seen with pulmonary arterial hypertension.
[2022-01-26] MEDS ORDERED: SODIUM CHLORIDE 0.9% 500 ML 500 ML IV ONE (13:24)
[2022-01-26] MEDS ORDERED: BEBTELOVIMAB (EUA) 175 MG/2 ML VIAL IV ONE (14:00)
[2022-01-26 16:37] VITALS: BP 102/68; PULSE 78; RESP 18; TEMP 98.3
== END 2022-01-26 16:36 | disposition home or self-care (01) ==
LOC: EC 11:15
DX: U07.1 COVID-19 (principal); E11.9 Type 2 diabetes mellitus without complications; I10 Essential (primary) hypertension; Z79.899 Other long term (current) drug therapy; Z79.82 Long term (current) use of aspirin; Z79.84 Long term (current) use of oral hypoglycemic drugs
CPT/HCPCS: 36415; 93005; 80053; 83605; 84484; 85025; 87635; 71046; 99285; 96365; J0131; Q0222

== ENCOUNTER 2022-06-03 11:43 | Emergency (ER) | payer MEDICARE, BC ==
[2022-06-03 11:50] VITALS: RESP 18; TEMP 98.1
--- NOTE | 2022-06-03 12:10 | ED ---
Weakness HPI - General Chief complaint: Weakness Stated complaint: AMS,UTI Time Seen by Provider: 06/03/22 11:51 Source: patient, family (), EMS, RN notes reviewed, old records reviewed Mode of arrival: EMS Limitations: no limitations - History of Present Illness Initial comments: This is a 76-year-old male that presents to the emergency room with his who states patient is complaining of generalized weakness with a parietal headache and not feeling well today. states that he has been asking for water throughout the day which he normally does not. Denies any fevers, nausea, vomiting, diarrhea or chest pain. Patient normally has some incontinence and wears depends. Currently stating he does have a parietal headache, denies trauma. states he has a history of Parkinson's with difficulty finding words and slurred speech which states is normal for him. He also has a deep brain stimulator for his Parkinson's. MD Complaint: generalized weakness (with parietal headache) -: days(s) (1) Severity scale (1-10): 0 Associated Symptoms: other (weakness) - Related Data Home Medications Medication Instructions Recorded Confirmed Atorvastatin Calcium [Lipitor] 10 mg PO HS 04/01/18 06/03/22 Carbidopa-Levodopa ER 50-200Mg 1 tab PO TID 04/01/18 06/03/22 [Sinemet CR 50-200 mg] Donepezil HCl [Aricept] 20 mg PO HS 04/01/18 06/03/22 Metoprolol Succinate [Toprol XL] 200 mg PO HS 04/01/18 06/03/22 Aspirin EC [Ecotrin Low Dose] 81 mg PO DAILY 05/17/18 06/03/22 Ascorbic Acid [Vitamin C] 500 mg PO DAILY 06/03/22 06/03/22 Cholecalciferol [Vitamin D3 (125 125 mcg PO DAILY 06/03/22 06/03/22 Mcg = 5000 Iu)] Cyanocobalamin (Vitamin B-12) 1,000 mcg PO DAILY 06/03/22 06/03/22 [Vitamin B-12] Ubidecarenone [Coenzyme Q10] 200 mg PO DAILY 06/03/22 06/03/22 metFORMIN HCL [Glucophage] 1,000 mg PO BID 06/03/22 06/03/22 Allergies Allergy/AdvReac Type Severity Reaction Status Date / Time No Known Allergies Allergy Verified 06/03/22 14:27 Review of Systems ROS Statement: Those systems with pertinent positive or pertinent negative responses have been documented in the HPI. ROS Other: All systems not noted in ROS Statement are negative. Past Medical History Past Medical History: Diabetes Mellitus, Hypertension Additional Past Medical History / Comment(s): Parkinsons, deep brain stimulator, Type 2 diabetes History of Any Multi-Drug Resistant Organisms: None Reported Past Surgical History: Heart Catheterization Additional Past Surgical History / Comment(s): Deep brain stimulator:2007 and battery replacement in stimulator Past Anesthesia/Blood Transfusion Reactions: No Reported Reaction Past Psychological History: No Psychological Hx Reported Past Alcohol Use History: None Reported Past Drug Use History: None Reported - Past Family History Brother(s) Family Medical History: Diabetes Mellitus Additional Family Medical History / Comment(s): Parkinsons Father Additional Family Medical History / Comment(s): Past away from a stroke General Exam Limitations: no limitations General appearance: alert, in no apparent distress Head exam: Present: atraumatic, normocephalic, other (History of a deep brain stimulator cranial scars noted) Eye exam: Absent: scleral icterus, conjunctival injection, periorbital swelling, periorbital tenderness ENT exam: Present: mucous membranes moist Neck exam: Present: other (Stimulator wires felt under the skin bilateral neck). Absent: tenderness, meningismus, lymphadenopathy, thyromegaly Respiratory exam: Absent: respiratory distress, accessory muscle use Cardiovascular Exam: Present: regular rate GI/Abdominal exam: Present: soft. Absent: distended, tenderness, guarding, rebound, rigid Extremities exam: Present: normal capillary refill Neurological exam: Present: alert (Following simple commands) Expanded Patient oriented to: Present: person, place Speech: Present: expressive aphasia Eye Response: (4) open spontaneously Motor Response: (6) obeys commands Verbal Response: (4) confused conversation [place] Total: 14 Psychiatric exam: Present: normal affect, normal mood Skin exam: Present: warm, dry, normal color. Absent: cyanosis, diaphoretic, petechiae, pallor Course Vital Signs 06/03/22 06/03/22 06/03/22 11:45 11:55 12:50 Temperature 98.1 F Pulse Rate 63 61 68 Respiratory 18 18 18 Rate Blood Pressure 150/80 O2 Sat by Pulse 95 95 Oximetry 06/03/22 06/03/22 13:50 14:23 Temperature 98.1 F Pulse Rate 66 67 Respiratory 18 18 Rate Blood Pressure 160/97 164/100 O2 Sat by Pulse 95 94 L Oximetry EKG Findings - EKG Results: EKG: sinus rhythm (Ventricular rate 64, OR interval 0.159, QRS 0.93, QTC 0.426; normal axis) Medical Decision Making - Medical Decision Making Patient was worked up for his generalized weakness and headache that started this morning. EKG interpreted by me shows sinus rhythm with ventricular rate of 64. Compared to old dated 01/26/2022. No evidence of leukocytosis, hemoglobin and hematocrit are stable, troponin is negative at 0.012. Urinalysis negative. Chest x-ray shows no acute pulmonary process, chronic changes. 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 Interpreted by me with no consolidation pacemaker wires CT brain shows age-related atrophy, stimulator leads in place. No intracranial process. CT interpreted by me shows normal cranial bleed. No midline shift. Brain stimulator noted Patient was offered pain medication for his headache upon arrival and declined. states patient has no new focal neurological deficits. He does have Parkinson's and his speech is normally slurred and his movements are nonpurposeful. He does have a deep brain stimulator for his Parkinson's. His weakness and headache may have been related to dehydration as his st ates the he did not eat anything or take his medications this morning prior to arrival. Patient's did give him his daily medications while in the emergency room. Patient's headache has resolved with no other intervention. He is feeling better. states that she is comfortable taking him home and following up with primary care doctor. Vital signs are stable. Case discussed with Dr. Ramirez. - Lab Data Result diagrams: 06/03/22 12:23 06/03/22 12:23 Lab Results 06/03/22 06/03/22 06/03/22 Range/Units 12:23 12:23 12:23 WBC 10.6 (3.8-10.6) k/uL RBC 4.37 (4.30-5.90) m/uL Hgb 12.6 L (13.0-17.5) gm/dL Hct 38.7 L (39.0-53.0) % MCV 88.5 (80.0-100.0) fL MCH 28.9 (25.0-35.0) pg MCHC 32.7 (31.0-37.0) g/dL RDW 13.6 (11.5-15.5) % Plt Count 256 (150-450) k/uL MPV 8.4 Neutrophils % 63 % Lymphocytes % 27 % Monocytes % 5 % Eosinophils % 2 % Basophils % 1 % Neutrophils # 6.7 (1.3-7.7) k/uL Lymphocytes # 2.8 (1.0-4.8) k/uL Monocytes # 0.5 (0-1.0) k/uL Eosinophils # 0.2 (0-0.7) k/uL Basophils # 0.1 (0-0.2) k/uL Hypochromasia Slight Sodium 133 L (137-145) mmol/L Potassium 4.7 (3.5-5.1) mmol/L Chloride 105 (98-107) mmol/L Carbon Dioxide 28 (22-30) mmol/L Anion Gap 0 mmol/L BUN 18 (9-20) mg/dL Creatinine 0.82 (0.66-1.25) mg/dL Est GFR (CKD-EPI)AfAm >90 (>60 ml/min/1.73 sqM) Est GFR (CKD-EPI)NonAf 85 (>60 ml/min/1.73 sqM) Glucose 106 H (74-99) mg/dL Plasma Lactic Acid [place] 1.7 (0.7-2.0) mmol/L Calcium 9.4 (8.4-10.2) mg/dL Magnesium 1.8 (1.6-2.3) mg/dL Total Bilirubin 0.7 (0.2-1.3) mg/dL AST 21 (17-59) U/L ALT 18 (4-49) U/L Alkaline Phosphatase 62 (38-126) U/L Troponin I (0.000-0.034) ng/mL Total Protein 6.6 (6.3-8.2) g/dL Albumin 4.4 (3.5-5.0) g/dL Urine Color Urine Appearance (Clear) Urine pH (5.0-8.0) Ur Specific [place] (1.001-1.035) Urine Protein (Negative) Urine Glucose (UA) (Negative) Urine Ketones (Negative) Urine Blood (Negative) Urine Nitrite (Negative) Urine Bilirubin (Negative) Urine Urobilinogen (<2.0) mg/dL Ur Leukocyte Esterase (Negative) 06/03/22 06/03/22 Range/Units 12:23 13:13 WBC (3.8-10.6) k/uL RBC (4.30-5.90) m/uL Hgb (13.0-17.5) gm/dL Hct (39.0-53.0) % MCV (80.0-100.0) fL MCH (25.0-35.0) pg MCHC (31.0-37.0) g/dL RDW (11.5-15.5) % Plt Count (150-450) k/uL MPV Neutrophils % % Lymphocytes % % Monocytes % % Eosinophils % % Basophils % % Neutrophils # (1.3-7.7) k/uL Lymphocytes # (1.0-4.8) k/uL Monocytes # (0-1.0) k/uL Eosinophils # (0-0.7) k/uL Basophils # (0-0.2) k/uL Hypochromasia Sodium (137-145) mmol/L Potassium (3.5-5.1) mmol/L Chloride (98-107) mmol/L Carbon Dioxide (22-30) mmol/L Anion Gap mmol/L BUN (9-20) mg/dL Creatinine (0.66-1.25) mg/dL Est GFR (CKD-EPI)AfAm (>60 ml/min/1.73 sqM) Est GFR (CKD-EPI)NonAf (>60 ml/min/1.73 sqM) Glucose (74-99) mg/dL Plasma Lactic Acid [place] (0.7-2.0) mmol/L Calcium (8.4-10.2) mg/dL Magnesium (1.6-2.3) mg/dL Total Bilirubin (0.2-1.3) mg/dL AST (17-59) U/L ALT (4-49) U/L Alkaline Phosphatase (38-126) U/L Troponin I <0.012 (0.000-0.034) ng/mL Total Protein (6.3-8.2) g/dL Albumin (3.5-5.0) g/dL Urine Color Colorless Urine Appearance Clear (Clear) Urine pH 7.5 (5.0-8.0) Ur Specific [place] 1.005 (1.001-1.035) Urine Protein Negative (Negative) Urine Glucose (UA) Negative (Negative) Urine Ketones Negative (Negative) Urine Blood Negative (Negative) Urine Nitrite Negative (Negative) Urine Bilirubin Negative (Negative) Urine Urobilinogen <2.0 (<2.0) mg/dL Ur Leukocyte Esterase Negative (Negative) Disposition Clinical Impression: Weakness, Headache Disposition: HOME SELF-CARE Condition: Good Instructions (If sedation given, give patient instructions): Acute Headache (ED), Weakness (ED) Additional Instructions: Increase your fluid intake. Follow-up with the primary care doctor this week. Return to the emergency room with any new or concerning symptoms Is patient prescribed a controlled substance at d/c from ED?: No Referrals: None,Stated [REFERRING] - 1-2 days Time of Disposition: 14:11
[2022-06-03 12:39] LABS: Basophils # (A) 0.1 k/uL (0-0.2); Basophils % (A) 1 %; Eosinophils # (A) 0.2 k/uL (0-0.7); Eosinophils % (A) 2 %; HCT 38.7 % (39.0-53.0); HGB 12.6 gm/dL (13.0-17.5); Hypochromasia Slight; Lymphocytes # (A) 2.8 k/uL (1.0-4.8); Lymphocytes % (A) 27 %; MCH 28.9 pg (25.0-35.0); MCHC 32.7 g/dL (31.0-37.0); MCV 88.5 fL (80.0-100.0); Mean Platelet Volume 8.4; Monocytes # (A) 0.5 k/uL (0-1.0); Monocytes % (A) 5 %; Neutrophils # (A) 6.7 k/uL (1.3-7.7); Neutrophils % (A) 63 %; Platelet Count 256 k/uL (150-450); RBC 4.37 m/uL (4.30-5.90); RDW 13.6 % (11.5-15.5); WBC 10.6 k/uL (3.8-10.6)
[2022-06-03 12:53] LABS: ALT 18 U/L (4-49); AST 21 U/L (17-59); African American GFR (CKD) >90 (>60 ml/min/1.73 sqM); Albumin 4.4 g/dL (3.5-5.0); Alkaline Phosphatase 62 U/L (38-126); Anion Gap 0 mmol/L; Blood Urea Nitrogen 18 mg/dL (9-20); Calcium 9.4 mg/dL (8.4-10.2); Carbon Dioxide 28 mmol/L (22-30); Chloride 105 mmol/L (98-107); Glucose 106 mg/dL (74-99); Magnesium 1.8 mg/dL (1.6-2.3); Non-African American GFR(CKD) 85 (>60 ml/min/1.73 sqM); Potassium 4.7 mmol/L (3.5-5.1); Sodium 133 mmol/L (137-145); Total Bilirubin 0.7 mg/dL (0.2-1.3); Total Protein 6.6 g/dL (6.3-8.2)
--- NOTE | 2022-06-03 13:08 | XR ---
EXAMINATION TYPE: XR chest 2V DATE OF EXAM: 06/03/2022 COMPARISON: Chest x-ray January 26, 2022 HISTORY: Weakness. TECHNIQUE: Frontal and lateral views of the chest are obtained. FINDINGS: Low lung volumes redemonstrated. There is no suspicious new focal air space opacity, pleura l effusion, or pneumothorax seen. The cardiac silhouette size is stable and mildly enlarged. Bilate ral neck stimulator devices are redemonstrated. The osseous structures are demineralized. Chronic Com pression type fractures near the thoracolumbar junction are redemonstrated. IMPRESSION: Chronic changes without new acute pulmonary process.
--- NOTE | 2022-06-03 13:11 | CT ---
EXAMINATION TYPE: CT brain wo con DATE OF EXAM: 06/03/2022 COMPARISON: 05/17/2018 INDICATION: Weakness. DLP: 1143.4 mGycm, Automated exposure control for dose reduction was used. CONTRAST: None CT of the brain is performed utilizing 3 mm thick sections through the posterior fossa and 3 mm thick sections through the remaining calvarium. Study is performed within 24 hours of arrival to the hosp [facility]. No abnormal hyperdensity is present to suggest an acute intracranial hemorrhage. No mass lesion is evident. No acute infarcts are evident. Ventricles and sulci are prominent for the patient age. Bilateral stimulator leads are evident Paranasal sinuses and mastoid air cells within the [id number] are clear. IMPRESSIONS: 1. Age related atrophy. 2. Stimulator leads present bilaterally. 3. Examination is stable from comparison. 4. No acute intracranial process.
[2022-06-03 13:21] LABS: Appearance,Urine Clear (Clear); Bilirubin,Urine Negative (Negative); Blood,Urine Negative (Negative); Color,Urine Colorless; Glucose,Urine (UA) Negative (Negative); Ketones,Urine Negative (Negative); Leukocyte Esterase,Urine Negative (Negative); Nitrite,Urine Negative (Negative); PH, Urine 7.5 (5.0-8.0); Protein,Urine Negative (Negative); Specific Gravity,Urine 1.005 (1.001-1.035); Urobilinogen,Urine <2.0 mg/dL (<2.0)
[2022-06-03 14:27] VITALS: BP 164/100; PULSE 67
== END 2022-06-03 14:32 | disposition home or self-care (01) ==
LOC: EC 11:43
DX: R53.1 Weakness (principal); R51.9 Headache, unspecified; I10 Essential (primary) hypertension; E11.9 Type 2 diabetes mellitus without complications; Z79.84 Long term (current) use of oral hypoglycemic drugs; Z79.899 Other long term (current) drug therapy
CPT/HCPCS: 36415; 70450; 71046; 80053; 81003; 83605; 83735; 84484; 85025; 93005; 99285